=== PATIENT | female | born 1990 | race Caucasian/White ===

== ENCOUNTER → 2017-10-30 15:46 | Outpatient (CLI) | payer BC, SELFPAY ==
[2017-10-30 18:40] LABS: Chlamydia Trachomatis by PCR Negative (Negative); Neisserai gonorrhoeae by PCR Negative (Negative); Probe Check PASS; Sample Adequacy Control PASS; Specimen Processing Control PASS
== END ==
PROVIDERS: Visit Provider Obstetrics & Gynecology
DX: Z11.3 Encounter for screening for infections with a predominantly sexual mode of transmission (principal); Z32.01 Encounter for pregnancy test, result positive
CPT/HCPCS: 87491; 87591

== ENCOUNTER → 2017-11-17 14:15 | Outpatient (CLI) | payer BC, SELFPAY ==
[2017-11-17 15:00] LABS: Color, Urine Yellow (Yellow); Glucose, Dipstick Normal (Normal); Ketone-Dipstick 50 mg/dl (Negative); Leukocyte Esterase-Dipstick Negative /ul (Negative); Nitrite-Dipstick Negative (Negative); Occult Blood-Urine Negative /ul (Negative); Protein-Dipstick Negative (Negative); Urine Bilirubin Dipstick Negative (Negative); Urine Clarity Clear (Clear); Urine Urobilinogen Normal (Normal)
[2017-11-17 15:09] LABS: Absolute Lymphocyte Count 2.49 X10^3/ul (0.83-4.51); Absolute Neutrophil Count 6.1 X10^3/uL (2.0-7.7); Basophil# 0.04 X10^3/uL; Basophil% 0.4 % (0-1); Eosinophil# 0.05 X10^3/uL; Eosinophils% 0.6 % (0-5); Hematocrit 34.2 % (37-47); Hemoglobin 11.8 g/dl (12.0-15.0); Lymphocyte # 2.49 X10^3/ul (4.0); Lymphocyte % 27.4 % (19-41); Mean Corp Hgb Conc 34.5 g/gl (32-36); Mean Corpuscular Hgb 30.5 pg (27.0-32.0); Mean Corpuscular Volume 88.4 fL (81-99); Mean Platelet Vol. 8.8 fl (6.2-12.0); Monocyte# 0.45 X10^3/uL; Neutrophil # 6.05 X10^3/uL (2.7-7.7); Neutrophil % 66.5 % (47-70); Platelet Count 276 K/mm3 (150-450); RBC Distribution Width CV 12.5 % (11.6-14.6); RBC Distribution Width SD 40.1 fl (35.1-43.9); Red Blood Count 3.87 M/mm3 (4.2-5.4); White Blood Count 9.1 K/mm3 (4.4-11.0)
[2017-11-17 15:26] LABS: POSITIVE COUNT NO; POSITIVE DIFFERENTIAL NO; POSITIVE MORPHOLOGY NO
[2017-11-17 15:32] LABS: Thyroid Stim Hormone (TSH) 1.24 uIU/mL (0.358-3.74)
[2017-11-17 16:14] LABS: HIV - WCH Non-Reactive (Nonreactive); Rubella IgG > 500.0 IU/mL
[2017-11-17 16:36] LABS: COTININE Drug Screen Negative (<200 ng/mL)
[2017-11-17 17:38] LABS: Amphetamine Urine VISTA NEGATIVE (<1000 ng/mL); Barbiturate Urine VISTA NEGATIVE (< 200 ng/mL); Benzodiazepine Urine VISTA NEGATIVE (< 200 ng/mL); Cocaine Urine VISTA NEGATIVE (< 300 ng/mL); Ecstacy Urine VISTA NEGATIVE (< 500 ng/mL); Methadone Urine VISTA NEGATIVE (< 300 ng/mL); PCP Urine VISTA NEGATIVE (< 25 ng/mL); THC Urine VISTA NEGATIVE (< 50 ng/mL); Vista UDS pH Range 6
[2017-11-19 01:51] LABS: Prenatal RPR NONREACTIVE (NONREACTIVE)
[2017-11-19 11:13] LABS: HEPATITIS B SURFACE AG Negative (Negative); Hep C Antibodies <0.1 s/co ratio (0.0-0.9)
== END ==
PROVIDERS: Visit Provider Obstetrics & Gynecology
DX: Z34.81 Encounter for supervision of other normal pregnancy, first trimester (principal)
CPT/HCPCS: 36415; 80307; 81002; 84443; 85025; 86703; 86762; 86803; 87340

== ENCOUNTER → 2018-03-19 09:47 | Outpatient (CLI) | payer BC, SELFPAY ==
[2018-03-19 10:00] LABS: Glucose Challenge Gest 1H 50g 154 mg/dL (70-140)
[2018-03-19 10:11] LABS: Hematocrit 27.9 % (37-47); Hemoglobin 9.5 g/dl (12.0-15.0); Mean Corp Hgb Conc 34.1 g/gl (32-36); Mean Corpuscular Hgb 31.9 pg (27.0-32.0); Mean Corpuscular Volume 93.6 fL (81-99); Mean Platelet Vol. 9.6 fl (6.2-12.0); Platelet Count 229 K/mm3 (150-450); RBC Distribution Width CV 12.3 % (11.6-14.6); RBC Distribution Width SD 40.9 fl (35.1-43.9); Red Blood Count 2.98 M/mm3 (4.2-5.4); White Blood Count 9.1 K/mm3 (4.4-11.0)
[2018-03-19 10:12] LABS: Scan Indicated on CBC? Y/N NO
[2018-03-20 16:30] LABS: Ferritin 20 ng/mL (8-252); Iron Binding Capacity,Total 414 ug/dL (250-450)
== END ==
PROVIDERS: Visit Provider Obstetrics & Gynecology
DX: Z34.83 Encounter for supervision of other normal pregnancy, third trimester (principal)
CPT/HCPCS: 82728; 82950; 83550; 85027

== ENCOUNTER → 2018-03-23 06:54 | Outpatient (CLI) | payer BC, SELFPAY ==
[2018-03-23 07:20] LABS: Bedside Glucose 85 mg/dL (70-110)
[2018-03-23 08:12] LABS: Glucose GTT-Gestation. Fasting 83 mg/dL (<105)
[2018-03-23 09:42] LABS: Glucose GTT-Gestational 1 Hr 188 mg/dL (<190)
[2018-03-23 09:52] LABS: Glucose GTT-Gestational 2 Hr 100 mg/dL (<165)
[2018-03-23 10:03] LABS: Vitamin B12 304 pg/mL (211-911)
[2018-03-23 10:49] LABS: Glucose GTT-Gestational 3 Hr 56 L (<145)
== END ==
PROVIDERS: Visit Provider Obstetrics & Gynecology
DX: O99.810 Abnormal glucose complicating pregnancy (principal); O99.013 Anemia complicating pregnancy, third trimester; D64.9 Anemia, unspecified; Z3A.00 Weeks of gestation of pregnancy not specified
CPT/HCPCS: 36415; 82607; 82951; 82952; 82962

== ENCOUNTER → 2018-04-20 13:03 | Outpatient (CLI) | payer BC, SELFPAY ==
[2018-04-20 15:28] LABS: Hemoglobin 10.9 g/dl (12.0-15.0); Mean Corp Hgb Conc 34.1 g/gl (32-36); Mean Corpuscular Hgb 32.4 pg (27.0-32.0); Mean Corpuscular Volume 95.2 fL (81-99); Mean Platelet Vol. 9.6 fl (6.2-12.0); Platelet Count 241 K/mm3 (150-450); RBC Distribution Width CV 13.4 % (11.6-14.6); RBC Distribution Width SD 44.1 fl (35.1-43.9); Red Blood Count 3.36 M/mm3 (4.2-5.4); White Blood Count 10.6 K/mm3 (4.4-11.0)
[2018-04-20 15:35] LABS: Scan Indicated on CBC? Y/N NO
== END ==
PROVIDERS: Visit Provider Obstetrics & Gynecology
DX: O99.013 Anemia complicating pregnancy, third trimester (principal); D64.9 Anemia, unspecified; Z3A.00 Weeks of gestation of pregnancy not specified
CPT/HCPCS: 85027

== ENCOUNTER → 2018-05-01 14:05 | Outpatient (CLI) | payer BC, SELFPAY | PROVIDERS: Visit Provider Obstetrics & Gynecology | DX: N39.0 Urinary tract infection, site not specified (principal) | CPT/HCPCS: 87086; 87088 ==

== ENCOUNTER → 2018-05-18 11:08 | Outpatient (CLI) | payer BC, SELFPAY ==
[2018-05-18 12:43] LABS: Group B Strep DNA By PCR Negative (Negative); Internal Control PASS; Probe Check PASS; Specimen Processing Control PASS
== END ==
PROVIDERS: Visit Provider Obstetrics & Gynecology
DX: Z36.85 Encounter for antenatal screening for Streptococcus B (principal)
CPT/HCPCS: 87081; 87653

== ENCOUNTER 2018-06-04 03:40 | Inpatient (IN) | payer BC, SELFPAY ==
[2018-06-04 04:22] VITALS: BMI 31.7
[2018-06-04] MEDS: Lactated Ringers 1,000 ML 50 ML IV ×4 (04:30→22:00)
[2018-06-04 04:57] LABS: Hematocrit 34.2 % (37-47); Hemoglobin 11.9 g/dl (12.0-15.0); Mean Corp Hgb Conc 34.8 g/gl (32-36); Mean Corpuscular Hgb 32.5 pg (27.0-32.0); Mean Corpuscular Volume 93.4 fL (81-99); Mean Platelet Vol. 10.3 fl (6.2-12.0); Platelet Count 231 K/mm3 (150-450); RBC Distribution Width CV 13.1 % (11.6-14.6); Red Blood Count 3.66 M/mm3 (4.2-5.4); White Blood Count 12.5 K/mm3 (4.4-11.0)
[2018-06-04 04:59] LABS: Scan Indicated on CBC? Y/N NO
[2018-06-04 05:10] LABS: ROM Internal Control Test YES-OK TO RESULT pt. (Internal QC); ROM Patient Test POSITIVE (Negative)
[2018-06-04] MEDS: Oxytocin 30 units/NS 500 ml 30 UNITS/500 ML IV.SOLN IV (06:30)
--- NOTE | 2018-06-04 09:11 | PCM.PN.BLA ---
Progress Note LABOR PROGRESS NOTE Contractions are stronger, but tolerable. AVSS GEN - NAD, AAO x 3 FHR 130, moderate variability, + accelerations, no decelerations TOCO 2-3/10 min SVE deferred A/P: 27yo G1 @ 39wga with SROM, pitocin augmentation, Cat I FHR -Continue pitocin as tolerated by mother and fetus -Maternal and statuses reassuring
[2018-06-04] MEDS: fentaNYL-bupivacaine (epidural) 100 ML BAG EPIDURAL ×3 (13:30→22:30)
[2018-06-04] MEDS: Ondansetron 4 MG/2 ML Vial IV (16:10)
--- NOTE | 2018-06-04 21:43 | PCM.PN.BLA ---
Progress Note LABOR PROGRESS NOTE Marleni is tired. She's had a long day. She managed to nap intermittently. No other complaints. AVSS GEN - NAD, AAO x 3 FHR 120, moderate variability, + accelerations, no decelerations TOCO 3/10 min SVE deferred - 6cm/80/-1 by RN exam A/P: 27yo G1 @ 39wga in active labor, Cat I FHR on pitocin -Maternal and statuses reassuring -Continue pitocin as tolerated by mother and fetus
[2018-06-05] VITALS (18 sets, daily range): BP systolic 105–137; BP diastolic 63–74; PULSE 86–114; RESP 15–19; TEMP 36.8–37.7; O2SAT 96–99
[2018-06-05] MEDS: Lactated Ringers 1,000 ML 50 ML IV ×2 (02:00→07:51)
[2018-06-05] MEDS: fentaNYL-bupivacaine (epidural) 100 ML BAG EPIDURAL ×2 (02:30→07:14)
--- NOTE | 2018-06-05 07:47 | PCM.PN.BLA ---
Progress Note LABOR PROGRESS NOTE No complaints. AVSS GEN - NAD, AAO x 3 FHR 135, moderate variability, + accelerations, no decelerations TOCO 2-3/10 min SVE 9/90/0, tranverse - back on maternal left A/P: 27yo G1 @ 39 1/7wga in active labor, Cat I FHR -Will complete rotational maneuvers to promote descent. -If no change in 3 hours, will plan for section. -Maternal and statuses reassuring
[2018-06-05] MEDS: 0.9% Saline Lock 10 ML Syringe IV (10:27)
[2018-06-05] MEDS: Sodium Citrate/Citric Acid 30 ML UDC PO (11:50)
--- NOTE | 2018-06-05 11:54 | PCM.PN.BLA ---
Progress Note LABOR PROGRESS NOTE Marleni is comfortable with the epidural and without complaints. AVSS GEN - NAD, AAO x 3 FHR 135, moderate variability, + accelerations, no decelerations TOCO 3/10 min SVE 9/90/0 station A/P: 27yo G1 @ 39 1/7wga with arrest of dilation, Cat I FHR -Discussed exam with patient and , advised section for arrest d/o. Reviewed risks including pain, bleeding possibly hemorrhage requiring dilation and curettage, hysterectomy and/or blood transfusion; infection including incisional, uterine, sepsis or abscess; bowel injury; bladder injury; scarring affecting future surgery, nerve injury. Patient and given opportunity to ask questions and questions answered to their satisfaction and desires to proceed. -Anesthesiology notified -d/c xiang
[2018-06-05] MEDS: Oxytocin 30 units/NS 500 ml 30 UNITS/500 ML IV.SOLN 167 UNITS IV (12:22)
[2018-06-05] MEDS: Methylergonovine 0.2 MG/ML Ampul IM (12:24)
--- NOTE | 2018-06-05 13:06 | PCM.OB.CSR ---
- Problem List (1) 39 weeks gestation of Status: Acute (2) Arrest of dilation, delivered, current hospitalization Status: Acute Delivery Classification: CASSIE Final MICHEAL: 06/11/18 Final MICHEAL Source: US <20 weeks Gestational age: 39 Weeks and 1 Days Indications: Marleni is a 27-year-old 1 para 0 at 39 weeks gestational age with rupture of membranes. She underwent Pitocin augmentation and progressed to 9 cm dilatation without further advancement in labor over approximately 8 hours. She is advised to proceed with section. Risks, benefits, indications of procedure were reviewed. Patient agreed to proceed. Indications for : Sec. Arrest of Dilitation Description of Procedure: Vigorous male infant, Apgars 9 and 9 at 1 and 5 minutes of life respectively. Birthweight 3240g. Procedure: The patient was taken to the operating room and spinal analgesia was administered. She is placed in a dorsal supine position with left lateral tilt. The perineum and abdomen were prepped and draped in sterile fashion. And the spinal was found to be adequate. A Pfannenstiel incision was made using a scalpel and brought down to incise the subcutaneous tissue and rectus fascia at the midline. Subcutaneous tissue was bluntly dissected off the fascia laterally. The fascial incision was dissected laterally and cephalad using curved Higginbotham scissors. The superior leaflet of the rectus fascia was grasped using Nilsa clamps and bluntly dissected and sharply dissected from the underlying rectus muscle. In a similar fashion the inferior rectus fascia was dissected from the underlying muscle. The rectus muscles were bluntly at the midline. The peritoneum was identified and entered [sharply]. The bladder blade was placed into the abdomen and the vesicouterine peritoneal fold identified. The fold was incised and a bladder flap created. Bladder blade was then repositioned to the abdomen. A low transverse hysterotomy was made using the [Metzenbaum scissors] to level of the membranes. The hysterotomy was extended bluntly cephalad and caudad. The membranes were then ruptured revealing clear fluid. The head was elevated and brought to the level of the hysterotomy and the delivered revealing vigorous [male] . The cord was doubly clamped and cut after 30 seconds. The was passed to awaiting [nursery personnel]. The placenta was [expressed] from the uterus and appeared intact on inspection. The uterus was cleared of debris. The hysterotomy was then repaired using 0 Vicryl running lock suture. A second imbricating layer was also placed for additional hemostasis. The bladder blade was removed. The anterior cul-de-sac was cleared of debris. The peritoneum and rectus muscles were reapproximated using 2-0 Vicryl running suture. The rectus fascia was closed using 0 Stratafix. The subcutaneous tissue was reapproximated using 2-0 Vicryl. The skin was closed using 4-0 Monocryl subcuticularly. The line was placed. Steri-Strips and a Mepilex occlusive dressing was placed over the incision. The fundus was firm. The patient was then transferred to the recovery room without complication. Sponge, instrument, and needle counts were correct ?2. Amniotic Membrane Rupture Type: Spontaneous Amniotic Fluid Description: Clear Placenta Disposition: [facility] Drain: Perez to straight drain Fluids Replaced: 1000 ml Cord Entanglement: None Nuchal Cord Compression: Without compression Cord Vessel Description: 3 Vessels Esitmated Blood Loss (ml): 1000 Gender: Male (1 minute): 9 (5 minute): 9 Delayed cord clamping: Yes Pre-op Antibiotic Given: Ancef 2 grams IV x1 Pt instructed on risks of surgery: Bleeding, Anesthesia Risks, Infection, Need for Future C-Sections, Injury to surrounding structure(s) including bowel and bladder Complications: None - Admit VTE Documentation VTE Present on Admission: No VTE Mechan Device Prophylaxis: SCD's VTE Pharm Prophylaxis ordered?: No
--- NOTE | 2018-06-05 13:35 | NURSING ---
Alan Valladares RN taking over care for recovery. Pt. back to room at 1315. Vital signs stable. Infant placed [id number] and initiated.
[2018-06-05] MEDS: Lactated Ringers 1,000 ML 100 ML IV (14:40)
[2018-06-05] MEDS: Ketorolac 30 MG/ML Syringe IV (18:30)
[2018-06-05] MEDS: Cefazolin 1 GM/50 ML BAG IV (19:39)
[2018-06-06] VITALS (11 sets, daily range): BP systolic 105–122; BP diastolic 63–80; PULSE 70–98; RESP 16–18; TEMP 36.7–37.1; O2SAT 96–99
[2018-06-06] MEDS: Ketorolac 30 MG/ML Syringe IV ×5 (00:13→23:58)
[2018-06-06] MEDS: Lactated Ringers 1,000 ML 100 ML IV (01:08)
[2018-06-06] MEDS: Cefazolin 1 GM/50 ML BAG IV (04:04)
[2018-06-06 04:26] LABS: Hematocrit 24.9 % (37-47); Hemoglobin 8.4 g/dl (12.0-15.0); Mean Corp Hgb Conc 33.7 g/gl (32-36); Mean Corpuscular Hgb 32.2 pg (27.0-32.0); Mean Corpuscular Volume 95.4 fL (81-99); Mean Platelet Vol. 9.7 fl (6.2-12.0); Platelet Count 162 K/mm3 (150-450); RBC Distribution Width SD 43.3 fl (35.1-43.9); Red Blood Count 2.61 M/mm3 (4.2-5.4); White Blood Count 11.9 K/mm3 (4.4-11.0)
[2018-06-06 04:29] LABS: Scan Indicated on CBC? Y/N NO
--- NOTE | 2018-06-06 07:56 | PCM.PN.OB ---
Patient Problems: Active and Suspected Problems 39 weeks gestation of (Acute) Arrest of dilation, delivered, current hospitalization (Acute) Subjective: POD#1 Primary C/S Doing well. Nursing. Pain control adequate. C/O sinus problems and had been taking Claritin at home. Will continue this for now. - Physical Exam General: Alert, Oriented x3, Cooperative, No apparent distress HEENT: Atraumatic Neck: Supple Abdomen: Soft - Fundus firm NT at 1-2 cm inferior to umbilicus Skin: Incision - Mepilex with shadow drainage marked, no extension. Steristrips visible inferior portion. Neurological: Cranial nerves II-XII grossly intact Psych/Mental Status: Normal Affect Vital Signs Temp Pulse Resp BP Pulse Ox 98.5 F 97 18 105/68 96 06/06/18 04:15 06/06/18 06:15 06/06/18 06:15 06/06/18 04:15 06/06/18 06:15 Oxygen Delivery Method Room Air Weight: 78.8 kg Body Mass Index (BMI) 31.7 Intake and Output for Last 24 Hours 06/04/18 06/05/18 06/06/18 23:59 23:59 23:59 Intake Total 2757 / 2757 9040.7 / 9040.7 1522 / 1522 Output Total 1100 / 1100 1850 / 1850 750 / 750 Balance 1657 / 1657 7190.7 / 7190.7 772 / 772 Laboratory Tests Past 24 Hrs 06/06/18 04:15 WBC 11.9 H RBC 2.61 L Hgb 8.4 L Hct 24.9 L MCV 95.4 MCH 32.2 H MCHC 33.7 RDW 13.0 RDW Differential 43.3 Plt Count 162 MPV 9.7 Medical Necessity - Tobacco Use Smoking Status: Never smoker Assessment/Plan All Active Problems 39 weeks gestation of (Acute) Arrest of dilation, delivered, current hospitalization (Acute) POD#1 Primary C/S FTP beyond 9 cm Stable postop. Inc diet and activity as tolerated. Begin po meds. May shower. D/C corrales for voiding trial today Acute blood loss anemia. Typed and crossed for one unit, holding for now. clinically stable. Begin ferrous sulfate bid Repeat CBC Sinus symptoms. Had been on claritin daily. Continue claritin Continue care.
[2018-06-06] MEDS: Prenatal Vits Tablet 1 TABLET PO (09:25)
[2018-06-06] MEDS: Ferrous Sulfate 325 MG Tablet PO ×2 (09:25→17:58)
[2018-06-06] MEDS: oxyCODONE 5 MG Tablet PO (16:30)
[2018-06-06] MEDS: 0.9% Saline Lock 10 ML Syringe IV ×2 (17:58→23:58)
--- NOTE | 2018-06-06 21:30 | NURSING ---
Pt showered and asked this RN to check dressing following. Edge of dressing rolled up allowing water to fill 3/4 of dressing. Removed dressing and dried area. Placed new dressing on site. Clean dry and intact. Educated pt on incision care.
[2018-06-06] MEDS: Senna/Docusate Sodium 1 Tablet PO (21:31)
[2018-06-06] MEDS: Acetaminophen 325 MG Tablet PO (21:31)
[2018-06-07 02:50] VITALS: BP 112/67; PULSE 82; RESP 16; TEMP 36.8; O2SAT 97
[2018-06-07] MEDS: 0.9% Saline Lock 10 ML Syringe IV ×2 (05:36→13:13)
[2018-06-07] MEDS: Ketorolac 30 MG/ML Syringe IV ×2 (05:36→13:12)
[2018-06-07 06:44] LABS: Absolute Lymphocyte Count 1.88 X10^3/ul (0.83-4.51); Absolute Neutrophil Count 8.7 X10^3/uL (2.0-7.7); Basophil# 0.01 X10^3/uL; Basophil% 0.1 % (0-1); Eosinophil# 0.05 X10^3/uL; Eosinophils% 0.4 % (0-5); Hematocrit 24.6 % (37-47); Hemoglobin 8.3 g/dl (12.0-15.0); Lymphocyte # 1.88 X10^3/ul (4.0); Lymphocyte % 16.9 % (19-41); Mean Corp Hgb Conc 33.7 g/gl (32-36); Mean Corpuscular Hgb 31.7 pg (27.0-32.0); Mean Corpuscular Volume 93.9 fL (81-99); Monocyte# 0.52 X10^3/uL; Monocyte% 4.7 % (0-10); Neutrophil # 8.65 X10^3/uL (2.7-7.7); Neutrophil % 77.7 % (47-70); Platelet Count 163 K/mm3 (150-450); RBC Distribution Width CV 13.4 % (11.6-14.6); RBC Distribution Width SD 45.5 fl (35.1-43.9); Red Blood Count 2.62 M/mm3 (4.2-5.4); White Blood Count 11.1 K/mm3 (4.4-11.0)
[2018-06-07 06:49] LABS: Differential Indicated SCAN CRITERIA MET; POSITIVE COUNT NO; POSITIVE DIFFERENTIAL NO; POSITIVE MORPHOLOGY YES
[2018-06-07 08:08] LABS: Differential Comment SCANNED; Reactive Lymphocyte 1+
--- NOTE | 2018-06-07 08:35 | PCM.PN.OB ---
Patient Problems: Active and Suspected Problems 39 weeks gestation of (Acute) Arrest of dilation, delivered, current hospitalization (Acute) Subjective: Pain improved with Oxycodone. OOB and ambulating. Passing flatus. No bowel movement yet. Denies nausea, tolerates a regular diet. She is . Objective: AVSS - Physical Exam General: Alert, Oriented x3, Cooperative, No apparent distress HEENT: Atraumatic, Normocephalic Lungs: Clear to auscultation, Normal air movement Cardiovascular: Regular rate, Regular Rhythm, Normal S1, Normal S2 Abdomen: Soft, Non Tender, Non-Distended, Hypoactive Bowel Sounds, - - Fundus firm and nontender, lochia scant, incisional dressing c/d/i Extremities: No edema, No Calf Tenderness Neurological: Neuro grossly intact Psych/Mental Status: Normal Affect, Appropriate, Alert and oriented to time, place, person, mood and affect Vital Signs Temp Pulse Resp BP Pulse Ox 98.3 F 82 16 112/67 97 06/07/18 02:50 06/07/18 02:50 06/07/18 02:50 06/07/18 02:50 06/07/18 02:50 Oxygen Delivery Method Room Air Weight: 78.8 kg Body Mass Index (BMI) 31.7 Intake and Output for Last 24 Hours 06/05/18 06/06/18 06/07/18 23:59 23:59 23:59 Intake Total 9040.7 / 9040.7 2248 / 2248 Output Total 1850 / 1850 2550 / 2550 Balance 7190.7 / 7190.7 -302 / -302 Laboratory Tests Past 24 Hrs 06/07/18 05:45 WBC 11.1 H RBC 2.62 L Hgb 8.3 L Hct 24.6 L MCV 93.9 MCH 31.7 MCHC 33.7 RDW 13.4 RDW Differential 45.5 H Plt Count 163 MPV 9.0 Immature Gran % (Auto) 0.200 Neut % (Auto) 77.7 H Lymph % (Auto) 16.9 L Andrews % (Auto) 4.7 Eos % (Auto) 0.4 Baso % (Auto) 0.1 Absolute Neuts (auto) 8.7 H Absolute Lymphs (auto) 1.88 Total Counted Not Reportable Differential Comment SCANNED Reactive Lymphocytes 1+ Medical Necessity - Tobacco Use Smoking Status: Never smoker Assessment/Plan All Active Problems 39 weeks gestation of (Acute) Arrest of dilation, delivered, current hospitalization (Acute) 27yo POD#2 s/p PLTCS doing well. - RPr nr, HBsAg neg, HIV neg, HCV Ab neg, A positive, Rubella immune - -Post-op anemia - reviewed with patient, plan for iron supplementation at home -Routine post-op care
[2018-06-07 09:50] VITALS: BP 118/71; PULSE 72; RESP 18; TEMP 36.8; O2SAT 98
[2018-06-07] MEDS: Ferrous Sulfate 325 MG Tablet PO ×2 (09:58→19:12)
[2018-06-07] MEDS: Acetaminophen 325 MG Tablet PO ×2 (09:59→19:10)
[2018-06-07] MEDS: Senna/Docusate Sodium 1 Tablet PO (09:59)
[2018-06-07] MEDS: Prenatal Vits Tablet 1 TABLET PO (13:12)
[2018-06-07 13:18] VITALS: BP 118/65; PULSE 61; RESP 18; TEMP 37.1; O2SAT 98
[2018-06-07] MEDS: oxyCODONE 5 MG Tablet PO (19:11)
[2018-06-07 21:00] VITALS: BP 126/76; PULSE 72; RESP 16; TEMP 37.3; O2SAT 96
[2018-06-07] MEDS: Ibuprofen 600 MG Tablet PO (23:21)
[2018-06-08 02:50] VITALS: BP 113/68; PULSE 73; RESP 16; TEMP 36.5
[2018-06-08] MEDS: Acetaminophen 325 MG Tablet PO ×2 (04:52→10:41)
[2018-06-08] MEDS: oxyCODONE 5 MG Tablet PO (07:20)
--- NOTE | 2018-06-08 08:23 | PCM.PN.OB ---
Patient Problems: Active and Suspected Problems 39 weeks gestation of (Acute) Arrest of dilation, delivered, current hospitalization (Acute) Subjective: Pain is controlled, OOB. Had episode of lightheadedness and palpitations, but attributes this pain when sitting on the toilet. Symptoms now resolved and denies sx while ambulating. No complains. Denies heavy lochia. Objective: AVSS - Physical Exam General: Alert, Oriented x3, Cooperative, No apparent distress HEENT: Atraumatic, Normocephalic Lungs: Clear to auscultation, Normal air movement Cardiovascular: Regular rate, Regular Rhythm, Normal S1, Normal S2 Abdomen: Bowel Sounds Present, Soft, Non Tender, Non-Distended, - - Fundus firm and nontender Neurological: Neuro grossly intact Psych/Mental Status: Normal Affect, Appropriate, Alert and oriented to time, place, person, mood and affect Vital Signs Temp Pulse Resp BP Pulse Ox 97.7 F L 73 16 113/68 96 06/08/18 02:50 06/08/18 02:50 06/08/18 02:50 06/08/18 02:50 06/07/18 21:00 Oxygen Delivery Method Room Air Weight: 78.8 kg Body Mass Index (BMI) 31.7 Intake and Output for Last 24 Hours 06/06/18 06/07/18 06/08/18 23:59 23:59 23:59 Intake Total 2248 / 2248 Output Total 2550 / 2550 Balance -302 / -302 Laboratory Tests Past 24 Hrs 06/04/18 04:30 Crossmatch See Detail Medical Necessity - Tobacco Use Smoking Status: Never smoker Assessment/Plan All Active Problems 39 weeks gestation of (Acute) Arrest of dilation, delivered, current hospitalization (Acute) 27yo POD#3 s/p PLTCS doing well. - RPr nr, HBsAg neg, HIV neg, HCV Ab neg, A positive, Rubella immune - -Post-op anemia - reviewed with patient, plan for iron supplementation at home -Routine post-op care -d/c home
[2018-06-08 08:25] VITALS: BP 127/75; PULSE 74; RESP 18; TEMP 36.5; O2SAT 96
--- NOTE | 2018-06-08 08:32 | PCM.DCCSEC ---
Discharge Diet: No Restrictions Discharge Activity: Return to Normal Activity, May not drive while taking narcotic pain medications., May Shower, - - No tub bath, do not put anything in the vagina May resume sexual activity in: 6 weeks Lifting Restrictions: 10 lb Call your doctor if your incision/area has: Continuous Slow Oozing, Sudden Increased Bleeding, Increased Pain/ Swelling, Increased Redness, Foul Smelling Discharge Call your doctor if you observe: Fever of 101 or Higher, Inability to urinate, Inability to have a bowel movement, Using more than one pad per hour, Shortness of breath, Chest pain, Calf discomfort, Uncontrolled pain Suture Line Care: Avoid Pulling/Pushing Remove Dressing in (days):: - Monday Cleanse incision/area with: Soap & Water Additional Instructions: If you experience any of the following, contact your healthcare provider. Bleeding that soaks a pad every hour for 2 hours Fever 100.4 or higher Unrelieved incision or abdominal pain Swelling, redness, discharge or bleeding from your incision or episiotomy site Your incision begins to separate Problems urinating (including inability to urinate or burning while urinating). Visual changes Severe headache Flu-like symptoms Pain or redness in one of both of your breasts Pain, warmth, tenderness or swelling in your legs, especially the calf area Frequent nausea and vomiting Symptoms of depression or anxiety If you experience any of the following, call 911 or go to the nearest Emergency Room. Chest pain Problems breathing Seizure activity Partial or complete paralysis of a body part, slurred speech, weakness or drooping of the face, or a sudden inability to walk or hold your balance Allergies/Adverse Reactions: Allergies No Known Allergies Allergy (Verified 06/04/18 04:23) Medications to take at Discharge Ferrous Sulfate 325 mg PO TID 06/04/18 Vits [Prenatabs FA ] 1 tablet PO DAILY 06/04/18 Oxycodone [Oxyir] 1 tab PO Q4H PRN PRN 3 Days #18 tablet 06/08/18 Senna/Docusate Sodium [Senokot-S] 1 - 2 tab PO DAILY PRN #30 tab 06/08/18 The following prescriptions were given: Oxycodone [Oxyir] 1 tab PO Q4H PRN PRN 3 Days #18 tablet PRN Reason: Mod-Severe Pain (-07/11) Senna/Docusate Sodium [Senokot-S] 1 - 2 tab PO DAILY PRN #30 tab PRN Reason: Constipation Follow-Up: Call to make an appointment with your doctor for an incision check in 1-2 weeks. You will also need a 6 week post- follow up appointment. Test results from this visit will be discussed in further detail at your follow-up appointment, if applicable. Please Follow Up With: Melva Freeman MD When: 1-2 weeks Please Follow Up With: Melva Freeman MD When: 6 weeks Primary Care Physician: Care Physician,No Primary [Primary Care Provider] -
[2018-06-08] MEDS: Ferrous Sulfate 325 MG Tablet PO (10:31)
[2018-06-08] MEDS: Prenatal Vits Tablet 1 TABLET PO (10:31)
[2018-06-08] MEDS: Senna/Docusate Sodium 1 Tablet PO (10:41)
--- NOTE | 2018-06-12 09:58 | PCM.DC.SUM ---
Discharge Date and Diagnosis Date of Admission: 06/04/18 Date of Discharge: 06/08/18 Hospital Course and Treatment Operations: - - Low transverse section Summary of Care Provided: The patient is a 27 year old F admitted with SROM at 39 weeks gestation. She progressed to 9cm dilation and subsequently underwent a primary low transverse section for arrest of dilation. Her post-operative course was marked by anemia with Hgb 8.4, which remained stable. She was started on iron supplementation. Her post-operative course was otherwise unremarkable and she was discharged to home on post-operative day #3. Discharge Diet: No Restrictions Discharge Activity: Return to Normal Activity, May not drive while taking narcotic pain medications., May Shower, - - No tub bath, do not put anything in the vagina May resume sexual activity in: 6 weeks Call your doctor if your incision/area has: Continuous Slow Oozing, Sudden Increased Bleeding, Increased Pain/ Swelling, Increased Redness, Foul Smelling Discharge Call your doctor if you observe: Fever of 101 or Higher, Inability to urinate, Inability to have a bowel movement, Using more than one pad per hour, Shortness of breath, Chest pain, Calf discomfort, Uncontrolled pain Suture Line Care: Avoid Pulling/Pushing Remove Dressing in (days):: 3 - Monday Cleanse incision/area with: Soap & Water Home Medications: Medications to take at Discharge Ferrous Sulfate 325 mg PO TID 06/04/18 Vits [Prenatabs FA ] 1 tablet PO DAILY 06/04/18 Oxycodone [Oxyir] 1 tab PO Q4H PRN PRN 3 Days #18 tablet 06/08/18 Senna/Docusate Sodium [Senokot-S] 1 - 2 tab PO DAILY PRN #30 tab 06/08/18 Following Prescrptions Were Given to Patient: Oxycodone [Oxyir] 1 tab PO Q4H PRN PRN 3 Days #18 tablet PRN Reason: Mod-Severe Pain (4-10/10) Senna/Docusate Sodium [Senokot-S] 1 - 2 tab PO DAILY PRN #30 tab PRN Reason: Constipation Primary Care Physician: Care Physician,No Primary [Primary Care Provider] - Please Follow Up With: Melva Freeman MD When: 1-2 weeks Please Follow Up With: Melva Freeman MD When: 6 weeks Medical Necessity - Tobacco Use Smoking Status: Never smoker Meaningful Use Info Meaningful Use Diagnoses (Choose all that apply): None applicable
== END 2018-06-08 11:30 | disposition home or self-care (01) | DRG 765 ==
PROVIDERS: Admitting Provider Obstetrics & Gynecology; Visit Provider Obstetrics & Gynecology
DX: O62.1 Secondary uterine inertia (principal); D62 Acute posthemorrhagic anemia; O42.12 Full-term premature rupture of membranes, onset of labor more than 24 hours following rupture; O99.03 Anemia complicating the puerperium; O99.02 Anemia complicating childbirth; D50.9 Iron deficiency anemia, unspecified; O99.52 Diseases of the respiratory system complicating childbirth; J34.9 Unspecified disorder of nose and nasal sinuses; Z3A.39 39 weeks gestation of pregnancy; Z37.0 Single live birth
CPT/HCPCS: 59025; 59050; 84112; 85025; 85027; 86850; 86900; 86920; 99218; J7120; A4216; G0378; J2405

== ENCOUNTER → 2018-12-05 15:34 | Outpatient (CLI) | payer BC, SELFPAY | PROVIDERS: Referring Provider Otolaryngology Otolaryngology/Facial Plastic Surgery; Visit Provider Otolaryngology Otolaryngology/Facial Plastic Surgery | DX: J32.9 Chronic sinusitis, unspecified (principal); J02.9 Acute pharyngitis, unspecified | CPT/HCPCS: 87070; 87077; 87186; 87205 ==

== ENCOUNTER → 2019-06-25 16:25 | Outpatient (CLI) | payer BC, SELFPAY ==
[2019-06-30 13:34] LABS: HPV APTIMA, High Risk Negative (Negative)
== END ==
PROVIDERS: Visit Provider Obstetrics & Gynecology
DX: Z12.4 Encounter for screening for malignant neoplasm of cervix (principal)
CPT/HCPCS: 87624; 88175; G0145

== ENCOUNTER → 2020-02-04 14:00 | Outpatient (CLI) | payer BC, SELFPAY ==
[2020-02-04 15:17] LABS: Absolute Lymphocyte Count 2.84 X10^3/uL (0.83-4.51); Absolute Neutrophil Count 4.6 X10^3/uL (2.0-7.7); Basophil# 0.03 X10^3/uL; Basophil% 0.4 % (0-1); Eosinophil# 0.09 X10^3/uL; Eosinophils% 1.1 % (0-5); Hematocrit 36.6 % (37-47); Hemoglobin 12.3 g/dL (12.0-15.0); Lymphocyte # 2.84 X10^3/ul (4.0); Lymphocyte % 35.5 % (19-41); Mean Corp Hgb Conc 33.6 g/dL (32-36); Mean Corpuscular Hgb 30.3 pg (27.0-32.0); Mean Corpuscular Volume 90.1 fL (81-99); Mean Platelet Vol. 9.8 fl (6.2-12.0); Monocyte# 0.45 X10^3/uL; Monocyte% 5.6 % (0-10); NRBC Flagged by Analyzer 0 % (0-5); Neutrophil # 4.55 X10^3/uL (2.7-7.7); Platelet Count 275 K/mm3 (150-450); RBC Distribution Width CV 12.5 % (11.6-14.6); Red Blood Count 4.06 M/mm3 (4.2-5.4)
[2020-02-04 15:39] LABS: Color, Urine Amber (Yellow); Glucose, Dipstick Normal (Normal); Leukocyte Esterase-Dipstick 100 /ul (Negative); Nitrite-Dipstick Negative (Negative); Occult Blood-Urine Negative /ul (Negative); Protein-Dipstick 30 mg/dl (Negative); Specific Gravity, Urine 1.025 (1.002-1.030); Urine Bilirubin Dipstick Negative (Negative); Urine Clarity Turbid (Clear); Urine Urobilinogen Normal (Normal)
[2020-02-04 15:45] LABS: Amphetamine Urine VISTA NEGATIVE (<1000 ng/mL); Barbiturate Urine VISTA NEGATIVE (< 200 ng/mL); Benzodiazepine Urine VISTA NEGATIVE (< 200 ng/mL); Cocaine Urine VISTA NEGATIVE (< 300 ng/mL); Ecstacy Urine VISTA NEGATIVE (< 500 ng/mL); Methadone Urine VISTA NEGATIVE (< 300 ng/mL); PCP Urine VISTA NEGATIVE (< 25 ng/mL); THC Urine VISTA NEGATIVE (< 50 ng/mL); Vista UDS pH Range 5
[2020-02-04 15:53] LABS: Thyroid Stim Hormone (TSH) 0.94 uIU/mL (0.358-3.74)
[2020-02-04 16:09] LABS: Ketone-Dipstick 150 mg/dl (Negative)
[2020-02-04 18:10] LABS: Chlamydia Trachomatis by PCR Negative (Negative); Neisserai gonorrhoeae by PCR Negative (Negative); Probe Check PASS; Sample Adequacy Control PASS; Specimen Processing Control PASS
[2020-02-05 08:28] LABS: HIV - WCH Non-Reactive (Nonreactive); Hepatitis B Surface Antigen Non-Reactive (Nonreactive); Hepatitis C Antibody Non-Reactive (Nonreactive); Rubella IgG > 500.0 IU/mL
[2020-02-06 08:07] LABS: Prenatal RPR NONREACTIVE (NONREACTIVE)
== END ==
PROVIDERS: Referring Provider Obstetrics & Gynecology; Visit Provider Obstetrics & Gynecology
DX: Z34.81 Encounter for supervision of other normal pregnancy, first trimester (principal)
CPT/HCPCS: 80307; 81002; 84443; 85025; 86703; 86762; 86803; 87340; 87491; 87591

== ENCOUNTER → 2020-05-29 08:37 | Outpatient (CLI) | payer BC, SELFPAY ==
[2020-05-29 12:13] LABS: Hematocrit 30.8 % (37-47); Hemoglobin 10.2 g/dL (12.0-15.0); Mean Corp Hgb Conc 33.1 g/dL (32-36); Mean Corpuscular Hgb 31.4 pg (27.0-32.0); Mean Corpuscular Volume 94.8 fL (81-99); Mean Platelet Vol. 9.7 fl (6.2-12.0); Platelet Count 254 K/mm3 (150-450); RBC Distribution Width CV 12.7 % (11.6-14.6); RBC Distribution Width SD 43.5 fl (35.1-43.9); Red Blood Count 3.25 M/mm3 (4.2-5.4); White Blood Count 8.6 K/mm3 (4.4-11.0)
[2020-05-29 12:36] LABS: Glucose Challenge Gest 1H 50g 179 mg/dL (70-140)
[2020-06-02 14:12] LABS: Ferritin 22 ng/mL (8-252)
== END ==
PROVIDERS: Visit Provider Obstetrics & Gynecology
DX: Z34.83 Encounter for supervision of other normal pregnancy, third trimester (principal)
CPT/HCPCS: 36415; 82728; 82950; 85027

== ENCOUNTER → 2020-06-16 06:59 | Outpatient (CLI) | payer BC, SELFPAY ==
[2020-06-16 07:49] LABS: Glucose GTT-Gestation. Fasting 92 mg/dL (<105)
[2020-06-16 08:51] LABS: Glucose GTT-Gestational 1 Hr 210 mg/dL (<190)
[2020-06-16 10:37] LABS: Glucose GTT-Gestational 2 Hr 118 mg/dL (<165)
[2020-06-16 11:57] LABS: Glucose GTT-Gestational 3 Hr 144 L (<145)
== END ==
PROVIDERS: Referring Provider Obstetrics & Gynecology; Visit Provider Obstetrics & Gynecology
DX: O24.912 Unspecified diabetes mellitus in pregnancy, second trimester (principal); Z3A.00 Weeks of gestation of pregnancy not specified
CPT/HCPCS: 36415; 82951; 82952

== ENCOUNTER 2020-07-23 07:00 | Inpatient (IN) | payer BC, SELFPAY ==
[2020-07-23] VITALS (29 sets, daily range): BP systolic 87–113; BP diastolic 50–71; PULSE 63–106; RESP 16–18; TEMP 36–37.3; O2SAT 97–100; BMI 28.5
--- NOTE | 2020-07-23 06:56 | PCM.HP.OB ---
- Problem List (1) 36 weeks gestation of Status: Acute History Date of Admission: 07/23/20 Final MICHEAL: 08/18/20 Final MICHEAL Source: US <20 weeks Gestational age: 36 Weeks and 2 Days History of this : This is a 30 year-old, G [2], P [1], at 36 2/7 weeks gestational age with c/o leaking of clear fluid since 0430h this morning. Medical History: Medical History (Last Updated 07/23/20 @ 07:[address] Melva Concepcion MD) Anemia affecting O99.019 Surgical History: Surgical History (Last Updated 07/23/20 @ 06:[address] Melva Concepcion MD) Previous section Z98.891 Allergies No Known Allergies Allergy (Verified 06/04/18 04:23) Home Medications: Home Medications Ferrous Sulfate 325 mg PO TID 06/04/18 Vits [Prenatabs FA ] 1 tablet PO DAILY 06/04/18 Senna/Docusate Sodium [Senokot-S] 1 - 2 tab PO DAILY PRN #30 tab 06/08/18 Smoking Status: Never smoker Alcohol: None NST - FHR Rate Baby A Baseline: 125 Variability:: Moderate Accelerations:: None Decelerations:: None NST Reactive:: Yes FHR Category:: Category I Uterine Activity:: 1-2/10 min History Past Pregnancies: Past Pregnancies Delivery Date Name GA/ Weeks Outcome Route Wt Infant Sex Labor Length Anesthesia Delivery Location Provider FOB 06/2018 Will 39 SROM, arres of dilation at 9sm LTCS 7lb2oz M 35 Epidural [facility] Shawn Clements Expected Infant Delivery Method: Repeat Section Number of Visits: 7 Review of Systems Constitutional: Denies: Chills, Fever HEENT: Denies: Head Aches, Sore Throat, Visual Changes Cardiovascular: Denies: Chest Pain Respiratory: Denies: Cough, Shortness of Breath Gastrointestinal: Denies: Abdominal Pain, Nausea Physical Exam Vitals: Vital Signs Temp Pulse BP Pulse Ox 98.2 F 81 109/63 98 07/23/20 06:50 07/23/20 06:50 07/23/20 06:50 07/23/20 06:50 General: Alert, Oriented x3, Cooperative, No apparent distress HEENT: Atraumatic, Normocephalic Cardiovascular: Regular rate, Regular Rhythm, Normal S1, Normal S2 Lungs: Clear to auscultation, Normal air movement Abdomen: Soft, Non Tender, Non-Distended, Gravid Extremities:: No edema Neurological: Neuro grossly intact MASTER FISHER: Normal external genitalia Estimated gestational size: Appropriate for gestational size Presentation: Cephalic Cervix Dilation (cm): 1.5 Station: -3 Effacement (%): 50 Assessment/Plan All Active Problems (Last Updated 07/23/20 @ 07:[address] Melva Concepcion MD) 39 weeks gestation of (Acute) Arrest of dilation, delivered, current hospitalization (Acute) delivery delivered (Acute) 36 weeks gestation of (Acute) This is a 30 year-old, G [2], P [1], at 36 2/7 weeks gestational age with PPROM, Cat I FHR -Hx prior section. Reviewed section procedural r/b/i/a, declines trial of labor. -NPO -GBS unknown, PCN ordered -Proceed with repeat
[2020-07-23] MEDS: Lactated Ringers 1,000 ML 999 ML IV (07:27)
[2020-07-23 07:57] LABS: Absolute Lymphocyte Count 2.74 X10^3/uL (0.83-4.51); Absolute Neutrophil Count 7.7 X10^3/uL (2.0-7.7); Basophil# 0.04 X10^3/uL; Basophil% 0.3 % (0-1); Eosinophil# 0.21 X10^3/uL; Eosinophils% 1.8 % (0-5); Hematocrit 32.3 % (37-47); Lymphocyte # 2.74 X10^3/ul (4.0); Lymphocyte % 23.9 % (19-41); Mean Corp Hgb Conc 34.1 g/dL (32-36); Mean Corpuscular Hgb 31.8 pg (27.0-32.0); Mean Corpuscular Volume 93.4 fL (81-99); Mean Platelet Vol. 9.7 fl (6.2-12.0); Monocyte# 0.68 X10^3/uL; Monocyte% 5.9 % (0-10); NRBC Flagged by Analyzer 0 % (0-5); Neutrophil # 7.67 X10^3/uL (2.7-7.7); Platelet Count 252 K/mm3 (150-450); RBC Distribution Width CV 12.8 % (11.6-14.6); RBC Distribution Width SD 43.4 fl (35.1-43.9); Red Blood Count 3.46 M/mm3 (4.2-5.4); White Blood Count 11.5 K/mm3 (4.4-11.0)
[2020-07-23] MEDS: Acetaminophen 500 MG Tablet 1000 MG PO ×3 (08:09→20:24)
[2020-07-23] MEDS: Sodium Citrate/Citric Acid 30 ML UDC PO (08:09)
[2020-07-23] MEDS: Cefazolin 2 GM in 0.9% Normal Saline 100 ML IV (08:20)
--- NOTE | 2020-07-23 09:37 | OP.PCM_ITS ---
Delivery Final MICHEAL: 08/18/20 Final MICHEAL Source: US <20 weeks Gestational age: 36 Weeks and 2 Days data governance consultant: Bryon Pozo Type of Anesthesia:: Spinal Date of Procedure: 07/23/20 Pre-Operative Diagnosis: Spontaneous rupture membranes, history of section Post-Operative Diagnosis: Spontaneous rupture of membranes, history of section Description of Procedure: Surgeon: Jorge Trent EBL: 800 cc IV fluids: 1000 cc Complications: None Specimen: None Findings: Female vertex position Apgars 8 and 9. Normal uterus, tubes, and ovaries. Mild amount of adhesions. Consent: Patient with a history of section with spontaneous rupture membranes at 04 30 desires repeat section. Patient understands her risk procedure include but not limited to visceral or vascular injury, prolonged hospitalization, blood loss need for transfusion, reoperation. Patient had understanding wished proceed. All questions answered consent was signed. Procedure: Patient was brought back to the OR where spinal anesthesia found to be adequate. 2 g of Ancef, penicillin, and 500 mg of azithromycin were given for infection prophylaxis. She was prepared and draped in a dorsal supine position with leftward tilt. A Pfannenstiel incision was made skin with a scalpel. The incision was carried down the fascia with scalpel. Fascia was excised distended laterally. Inferior aspect of the fascia was grasped with a Nilsa clamp and the underlying rectus and mentalis muscle dissected off sharply with Higginbotham scissors. In a similar fashion superior aspect of the fascia was grasped with a Nilsa clamp and the underlying disc muscles dissected off sharply. Peritoneum was entered bluntly. Peritoneum was then extended superiorly and inferiorly with good visualization of bladder. Bladder blade inserted and vesicouterine peritoneum identified. Bladder flap was developed. A low transverse hysterotomy was made. Extended superior and inferiorly with upward lateral traction. Hand was placed into the hysterotomy and gentle fundal pressure was applied once the head was brought into the hysterotomy and bladder blade was removed. Head and shoulders were delivered with ease. Cord was cut and clamped. Baby was handed off to nursing. Uterus was exteriorized and closed in a continuous running fashion. Second layer was performed. Good hemostasis noted. Uterus placed back in the abdominal cavity and good hemostasis was noted. Muscle was closed. Fascia was closed continuous running fashion. Skin was closed in a subcuticular fashion. All counts were correct x2. Patient tolerated procedure well was brought to recovery stable condition.
[2020-07-23] MEDS: Oxytocin 30 units/NS 500 ml 30 UNITS/500 ML IV.SOLN 167 UNITS IV (09:45)
[2020-07-23 14:41] LABS: Group B Strep DNA By PCR Negative (Negative); Internal Control PASS; Probe Check PASS; Specimen Processing Control PASS
[2020-07-23] MEDS: Ketorolac 30 MG/ML Syringe IV ×2 (15:07→21:28)
[2020-07-23] MEDS: 0.9% Saline Lock 10 ML Syringe IV ×2 (15:08→21:28)
[2020-07-23] MEDS: Enoxaparin 40 MG/0.4 ML Syringe SC (20:25)
[2020-07-24 01:09] VITALS: BP 101/66; PULSE 73; RESP 14; TEMP 36.4
[2020-07-24] MEDS: Ketorolac 30 MG/ML Syringe IV ×2 (02:58→09:01)
[2020-07-24] MEDS: Acetaminophen 500 MG Tablet 1000 MG PO ×4 (02:59→20:26)
[2020-07-24] MEDS: 0.9% Saline Lock 10 ML Syringe IV ×2 (02:59→09:02)
[2020-07-24 03:03] VITALS: BP 103/65; PULSE 70; RESP 16; TEMP 36.1
[2020-07-24 03:23] LABS: Hematocrit 28.2 % (37-47); Hemoglobin 9.4 g/dL (12.0-15.0); Mean Corp Hgb Conc 33.3 g/dL (32-36); Mean Corpuscular Hgb 31.4 pg (27.0-32.0); Mean Corpuscular Volume 94.3 fL (81-99); Mean Platelet Vol. 9.2 fl (6.2-12.0); Platelet Count 209 K/mm3 (150-450); RBC Distribution Width CV 12.9 % (11.6-14.6); RBC Distribution Width SD 44.3 fl (35.1-43.9); Red Blood Count 2.99 M/mm3 (4.2-5.4); White Blood Count 12.1 K/mm3 (4.4-11.0)
[2020-07-24 07:40] VITALS: RESP 16; O2SAT 98
--- NOTE | 2020-07-24 08:41 | PCM.PN.OB ---
Patient Problems: Active and Suspected Problems (Last Updated 07/23/20 @ 07:[address] Melva Concepcion MD) 36 weeks gestation of (Acute) Subjective: No overnight complaints. Pain well controlled. Denies fevers chills - Physical Exam Vitals/I&O's: Vital Signs Temp Pulse Resp BP Pulse Ox 97 F L 70 16 103/65 98 07/24/20 03:03 07/24/20 03:03 07/24/20 07:40 07/24/20 03:03 07/24/20 07:40 Oxygen Delivery Method Room Air Weight: 156 lb Body Mass Index (BMI) 28.5 Intake and Output for Last 24 Hours 07/22/20 07/23/20 07/24/20 23:59 23:59 23:59 Intake Total 4069.05 / 4069.05 Output Total 1600 / 1600 1300 / 1300 Balance 2469.05 / 2469.05 -1300 / -1300 General: Alert, Oriented x3, Cooperative, No apparent distress HEENT: Atraumatic, PERRLA, Normocephalic Oral: Moist Mucosa Neck: Supple Abdomen: Bowel Sounds Present, Soft, Non Tender, Gravid - Fundus firm and below umbilicus, - - Incision clean dry and intact Extremities: No clubbing, No cyanosis, No edema Psych/Mental Status: Normal Affect, Appropriate, Alert and oriented to time, place, person, mood and affect Laboratory Results 07/23/20 07:27: Blood Type A POSITIVE, Antibody Screen NEGATIVE 07/23/20 07:40: Group B Strep DNA Negative, Specimen Comment Not Reportable 07/24/20 03:15: WBC 12.1 H, RBC 2.99 L, Hgb 9.4 L, Hct 28.2 L, MCV 94.3, MCH 31.4, MCHC 33.3, RDW Std Deviation 44.3 H, RDW Coeff of Bright 12.9, Plt Count 209, MPV 9.2 Current Medications Acetaminophen (Acetaminophen 500 Mg Tablet) 1,000 mg PO Q6H [facility]OM[facility] Last Admin: 07/24/20 02:59 Dose: 1,000 mg Documented by: Bisacodyl (Bisacodyl 10 Mg Suppository) 10 mg RECTAL UD PRN PRN Reason: If no BM Diphenhydramine HCl (Diphenhydramine 25 Mg Capsule) 25 mg PO Q6H PRN PRN PRN Reason: ITCHING Stop: 07/24/20 09:49 Enoxaparin Sodium (Enoxaparin 40 Mg/0.4 Ml Syringe) 40 mg SC DAILY@1999 [facility] Last Admin: 07/23/20 20:25 Dose: 40 mg Documented by: Hydrocortisone (Hydrocortisone 2.5% Crm) 1 applic TOPICAL TID PRN PRN; Protocol PRN Reason: Discomfort Lactated Ringer's () 1,000 mls @ 100 mls/hr IV .Q10H [facility] Last Admin: 07/23/20 21:54 Dose: Not Given Documented by: Ibuprofen (Ibuprofen 600 Mg Tablet) 600 mg PO Q6H [facility] Ketorolac Tromethamine (Ketorolac 30 Mg/Ml Syringe) 30 mg IV Q6H [facility] Stop: 07/24/20 09:01 Last Admin: 07/24/20 02:58 Dose: 30 mg Documented by: Methylergonovine Maleate (Methylergonovine 0.2 Mg/Ml Ampul) 0.2 mg IM X1 PRN PRN Reason: Uterine Atony Nalbuphine HCl (Nalbuphine 10 Mg/Ml Ampul) 5 mg IV Q3H PRN PRN PRN Reason: ITCHING Stop: 07/24/20 09:49 Naloxone HCl (Naloxone 0.4 Mg/Ml Syringe) 0.02 mg IV Q1M PRN PRN Reason: RR <10 and pt unresponsive Ondansetron HCl (Ondansetron 4 Mg/2 Ml Vial) 4 mg IV Q4H PRN PRN PRN Reason: Nausea Oxycodone HCl (Oxycodone 5 Mg Tablet) 5 mg PO Q4H PRN PRN PRN Reason: Pain Score 4-10 Prochlorperazine Edisylate (Prochlorperazine 10 Mg/2 Ml Vial) 10 mg IV Q6H PRN PRN PRN Reason: NAUSEA Senna/Docusate Sodium (Senna/Docusate Sodium 1 Tablet) 0 tablet PO DAILY [facility] Last Admin: 07/23/20 10:38 Dose: Not Given Documented by: Simethicone (Simethicone 80 Mg Tablet) 80 mg PO PCHS PRN PRN Reason: Indigestion/stomach pain Sodium Chloride (0.9% Saline Lock 10 Ml Syringe) 5 - 15 ml IV UD PRN PRN Reason: SALINE FLUSH Last Admin: 07/24/20 02:59 Dose: 10 ml Documented by: Medical Necessity - Tobacco Use Smoking Status: Never smoker Assessment/Plan All Active Problems (Last Updated 07/23/20 @ 07:[address] Melva Concepcion MD) 39 weeks gestation of (Acute) Arrest of dilation, delivered, current hospitalization (Acute) delivery delivered (Acute) 36 weeks gestation of (Acute) Postop day 1 status post repeat section at 36 weeks for spontaneous rupture membranes. Pain well controlled. Breast-feeding. Home tomorrow based on concrete carpenter's recommendations.
[2020-07-24] MEDS: Senna/Docusate Sodium 1 Tablet PO (09:01)
[2020-07-24 09:05] VITALS: BP 97/66; PULSE 77; RESP 16; TEMP 36.4
[2020-07-24 15:05] VITALS: BP 103/64; PULSE 78; RESP 16; TEMP 36.6
[2020-07-24] MEDS: Ibuprofen 600 MG Tablet PO ×2 (15:07→21:33)
[2020-07-24] MEDS: Enoxaparin 40 MG/0.4 ML Syringe SC (19:56)
[2020-07-24 20:04] VITALS: BP 108/71; PULSE 70; RESP 16; TEMP 36.9
[2020-07-25 02:00] VITALS: BP 102/65; PULSE 78; RESP 16; TEMP 36.8
[2020-07-25] MEDS: Acetaminophen 500 MG Tablet 1000 MG PO ×2 (03:04→09:20)
[2020-07-25] MEDS: Ibuprofen 600 MG Tablet PO (04:29)
--- NOTE | 2020-07-25 08:22 | PCM.PN.OB ---
Patient Problems: Active and Suspected Problems (Last Updated 07/23/20 @ 07:[address] Melva Concepcion MD) 36 weeks gestation of (Acute) Subjective: No overnight complaints. Pain well controlled. Minimal lochia. - Physical Exam Vitals/I&O's: Vital Signs Temp Pulse Resp BP Pulse Ox 98.2 F 78 16 102/65 98 07/25/20 02:00 07/25/20 02:00 07/25/20 02:00 07/25/20 02:00 07/24/20 07:40 Oxygen Delivery Method Room Air Weight: 156 lb Body Mass Index (BMI) 28.5 Intake and Output for Last 24 Hours 07/23/20 07/24/20 07/25/20 23:59 23:59 23:59 Intake Total 4069.05 / 4069.05 Output Total 1600 / 1600 1300 / 1300 Balance 2469.05 / 2469.05 -1300 / -1300 General: Alert, Oriented x3, Cooperative, No apparent distress HEENT: Atraumatic, Normocephalic Oral: Moist Mucosa Neck: Supple Abdomen: Bowel Sounds Present, Soft, Non Tender, Gravid - Fundus firm below umbilicus, - - Incision clean dry and intact Extremities: No clubbing, No cyanosis, No edema Psych/Mental Status: Normal Affect, Appropriate, Alert and oriented to time, place, person, mood and affect Current Medications Acetaminophen (Acetaminophen 500 Mg Tablet) 1,000 mg PO Q6H [facility] Last Admin: 07/25/20 03:04 Dose: 1,000 mg Documented by: Bisacodyl (Bisacodyl 10 Mg Suppository) 10 mg RECTAL UD PRN PRN Reason: If no BM Enoxaparin Sodium (Enoxaparin 40 Mg/0.4 Ml Syringe) 40 mg SC DAILY@1999 [facility] Last Admin: 07/24/20 19:56 Dose: 40 mg Documented by: Hydrocortisone (Hydrocortisone 2.5% Crm) 1 applic TOPICAL TID PRN PRN; Protocol PRN Reason: Discomfort Ibuprofen (Ibuprofen 600 Mg Tablet) 600 mg PO Q6H [facility] Last Admin: 07/25/20 04:29 Dose: 600 mg Documented by: Methylergonovine Maleate (Methylergonovine 0.2 Mg/Ml Ampul) 0.2 mg IM X1 PRN PRN Reason: Uterine Atony Naloxone HCl (Naloxone 0.4 Mg/Ml Syringe) 0.02 mg IV Q1M PRN PRN Reason: RR <10 and pt unresponsive Ondansetron HCl (Ondansetron 4 Mg/2 Ml Vial) 4 mg IV Q4H PRN PRN PRN Reason: Nausea Oxycodone HCl (Oxycodone 5 Mg Tablet) 5 mg PO Q4H PRN PRN PRN Reason: Pain Score 4-10 Prochlorperazine Edisylate (Prochlorperazine 10 Mg/2 Ml Vial) 10 mg IV Q6H PRN PRN PRN Reason: NAUSEA Senna/Docusate Sodium (Senna/Docusate Sodium 1 Tablet) 0 tablet PO DAILY [facility] Last Admin: 07/24/20 09:01 Dose: 1 tablet Documented by: Simethicone (Simethicone 80 Mg Tablet) 80 mg PO PCHS PRN PRN Reason: Indigestion/stomach pain Last Admin: 07/24/20 17:26 Dose: 80 mg Documented by: Sodium Chloride (0.9% Saline Lock 10 Ml Syringe) 5 - 15 ml IV UD PRN PRN Reason: SALINE FLUSH Last Admin: 07/24/20 09:02 Dose: 10 ml Documented by: Medical Necessity - Tobacco Use Smoking Status: Never smoker Assessment/Plan All Active Problems (Last Updated 07/23/20 @ 07:[address] Melva Concepcion MD) 39 weeks gestation of (Acute) Arrest of dilation, delivered, current hospitalization (Acute) delivery delivered (Acute) 36 weeks gestation of (Acute) Postoperative day 2 of section. Pain well controlled. Breast-feeding. Okay to [place] home if okay with residential counselor
--- NOTE | 2020-07-25 08:24 | DCINST_ITS ---
Discharge Diet: No Restrictions Discharge Activity: Return to Normal Activity, May not drive while taking narcotic pain medications., May Shower, - - No tub baths for 2 weeks May resume sexual activity in: 2 weeks Weight Bearing Status: Weight bearing as tolerated Call your doctor if your incision/area has: Foul Smelling Discharge Call your doctor if you observe: Fever of 101 or Higher, Shortness of breath, Chest pain Additional Instructions: If you experience any of the following, contact your healthcare provider. * Bleeding that soaks a pad every hour for 2 hours * Fever 100.4 or higher * Unrelieved incision or abdominal pain * Swelling, redness, discharge or bleeding from your incision or episiotomy site * Your incision begins to separate * Problems urinating (including inability to urinate or burning while urinating). * Visual changes * Severe headache * Flu-like symptoms * Pain or redness in one of both of your breasts * Pain, warmth, tenderness or swelling in your legs, especially the calf area * Frequent nausea and vomiting * Symptoms of depression or anxiety If you experience any of the following, call 911 or go to the nearest Emergency Room. * Chest pain * Problems breathing * Seizure activity * Partial or complete paralysis of a body part, slurred speech, weakness or drooping of the face, or a sudden inability to walk or hold your balance Allergies/Adverse Reactions: Allergies No Known Allergies Allergy (Verified 07/23/20 07:03) Medications to take at Discharge Ferrous Sulfate 325 mg PO TID 06/04/18 Vits [Prenatabs FA ] 1 tablet PO DAILY 06/04/18 Senna/Docusate Sodium [Senokot-S] 1 - 2 tab PO DAILY PRN #30 tab 06/08/18 Docusate Sodium [Colace] 100 mg PO BID #60 cap 07/25/20 Oxycodone [Oxyir] 5 mg PO Q6H PRN PRN 3 Days #12 tablet 07/25/20 The following prescriptions were given: Docusate Sodium [Colace] 100 mg PO BID #60 cap Transmission Status: Pending to [id number] Oxycodone [Oxyir] 5 mg PO Q6H PRN PRN 3 Days #12 tablet PRN Reason: Pain Score 6-10 Transmission Status: Received by [id number] Follow-Up: Call to make an appointment with your doctor for an incision check in 1-2 weeks. You will also need a 6 week post- follow up appointment. Test results from this visit will be discussed in further detail at your follow- up appointment, if applicable. Please Follow Up With: Melva Hills MD When: 2 weeks Primary Care Physician: Care Physician,No Primary [Primary Care Provider] - Proposed Discharge Date: 07/25/20
[2020-07-25 08:37] VITALS: BP 112/74; PULSE 68; RESP 16; TEMP 36.2
[2020-07-25] MEDS: Senna/Docusate Sodium 1 Tablet PO (09:20)
--- NOTE | 2020-07-25 22:07 | PCM.DC.SUM ---
Discharge Date and Diagnosis - Problem List Patient Problems: Active and Suspected Problems (Last Updated 07/23/20 @ 07:[address] Melva Concepcion MD) 36 weeks gestation of (Acute) Date of Admission: 07/23/20 Date of Discharge: 07/25/20 - Primary Discharge Diagnosis Acute Problems: Active Problems (Last Updated 07/23/20 @ 07:[address] Melva Concepcion MD) 36 weeks gestation of (Acute) Hospital Course and Treatment Imaging Results: None None Operations: - - Low transverse section Summary of Care Provided: The patient is a 30 year old F with 36-week spontaneous rupture membranes and history of section admitted to the hospital on 07/23/2020. Based on spontaneous rupture membranes and history of delivery proceeded with repeat low transverse section Via Pfannenstiel incision. Delivery and procedure without complication. Patient was standard postoperative recovery period and was discharged home on 07/25/2020. ] Patient Problems: Active and Suspected Problems (Last Updated 07/23/20 @ 07:[address] Melva Concepcion MD) 36 weeks gestation of (Acute) - Physical Exam Vitals/I&O's: Vital Signs Temp Pulse Resp BP Pulse Ox 97.2 F L 68 16 112/74 98 07/25/20 08:37 07/25/20 08:37 07/25/20 08:37 07/25/20 08:37 07/24/20 07:40 Oxygen Delivery Method Room Air Weight: 156 lb Body Mass Index (BMI) 28.5 Discharge Diet: No Restrictions Discharge Activity: Return to Normal Activity, May not drive while taking narcotic pain medications., May Shower, - - No tub baths for 2 weeks May resume sexual activity in: 2 weeks Weight Bearing Status: Weight bearing as tolerated Call your doctor if your incision/area has: Foul Smelling Discharge Call your doctor if you observe: Fever of 101 or Higher, Shortness of breath, Chest pain Home Medications: Medications to take at Discharge Ferrous Sulfate 325 mg PO TID 06/04/18 Vits [Prenatabs FA ] 1 tablet PO DAILY 06/04/18 Senna/Docusate Sodium [Senokot-S] 1 - 2 tab PO DAILY PRN #30 tab 06/08/18 Docusate Sodium [Colace] 100 mg PO BID #60 cap 10/24/20 Following Prescriptions Were Given to Patient: Docusate Sodium [Colace] 100 mg PO BID #60 cap Transmission Status: [id number] Primary Care Physician: Care Physician,No Primary [Primary Care Provider] - Please follow up with your Primary Care Physician in: 1-2 weeks for incision check and 6 week follow up Please Follow Up With: Melva Hills MD When: 2 weeks Medical Necessity - Tobacco Use Smoking Status: Never smoker Meaningful Use Info Meaningful Use Diagnoses (Choose all that apply): None applicable
== END 2020-07-25 09:50 | disposition home or self-care (01) | DRG 788 ==
LOC: WPOUT 07:04 → WP 07:04
PROVIDERS: Admitting Provider Obstetrics & Gynecology; Referring Provider Obstetrics & Gynecology; Visit Provider Obstetrics & Gynecology
DX: O34.219 Maternal care for unspecified type scar from previous cesarean delivery (principal); Z37.0 Single live birth; D64.9 Anemia, unspecified; O99.019 Anemia complicating pregnancy, unspecified trimester; Z3A.36 36 weeks gestation of pregnancy
CPT/HCPCS: 59050; 85025; 85027; 86850; 86900; 86901; 87081; 87653; 99218; 99251; J7120; A4216; G0378; G0463; J2405

== ENCOUNTER → 2021-07-23 10:11 | Outpatient (CLI) | payer BC, SELFPAY ==
[2021-07-23 11:17] LABS: Color, Urine Yellow (Yellow); Glucose, Dipstick Normal (Normal); Ketone-Dipstick Negative (Negative); Leukocyte Esterase-Dipstick Negative /ul (Negative); Nitrite-Dipstick Negative (Negative); Occult Blood-Urine Negative /ul (Negative); Protein-Dipstick Negative (Negative); Urine Bilirubin Dipstick Negative (Negative); Urine Clarity Clear (Clear); Urine Urobilinogen Normal (Normal); Urine pH 6.5 (5.0 - 8.0)
[2021-07-23 11:23] LABS: Absolute Lymphocyte Count 2.23 X10^3/uL (0.83-4.51); Absolute Neutrophil Count 5.1 X10^3/uL (2.0-7.7); Basophil# 0.02 X10^3/uL; Basophil% 0.3 % (0-1); Eosinophil# 0.17 X10^3/uL; Eosinophils% 2.1 % (0-5); Hematocrit 37.1 % (37-47); Hemoglobin 12.4 g/dL (12.0-15.0); Lymphocyte # 2.23 X10^3/ul (0.83-4.51); Lymphocyte % 27.9 % (19-41); Mean Corp Hgb Conc 33.4 g/dL (32-36); Mean Corpuscular Volume 89.6 fL (81-99); Mean Platelet Vol. 9.8 fl (6.2-12.0); Monocyte# 0.44 X10^3/uL; Monocyte% 5.5 % (0-10); NRBC Flagged by Analyzer 0 % (0-5); Neutrophil % 63.8 % (47-70); Platelet Count 293 K/mm3 (150-450); RBC Distribution Width CV 12.2 % (11.6-14.6); RBC Distribution Width SD 39.8 fl (35.1-43.9); Red Blood Count 4.14 M/mm3 (4.2-5.4)
[2021-07-23 11:35] LABS: Thyroid Stim Hormone (TSH) 1.23 uIU/mL (0.358-3.74)
[2021-07-23 11:40] LABS: Amphetamine Urine VISTA NEGATIVE (<1000 ng/mL); Barbiturate Urine VISTA NEGATIVE (< 200 ng/mL); Benzodiazepine Urine VISTA NEGATIVE (< 200 ng/mL); Cocaine Urine VISTA NEGATIVE (< 300 ng/mL); Ecstacy Urine VISTA NEGATIVE (< 500 ng/mL); Methadone Urine VISTA NEGATIVE (< 300 ng/mL); PCP Urine VISTA NEGATIVE (< 25 ng/mL); THC Urine VISTA NEGATIVE (< 50 ng/mL); Vista UDS pH Range 6
[2021-07-23 12:23] LABS: HIV - WCH Non-Reactive (Nonreactive); Hepatitis B Surface Antigen Non-Reactive (Nonreactive); Hepatitis C Antibody Non-Reactive (Nonreactive); Rubella IgG Reactive (Nonreactive); Syphilis Antibodies Non-reactive
[2021-07-26 01:06] LABS: Chlamydia By Nucleic Acid AMP Negative (Negative)
[2021-07-26 08:29] LABS: Gonococcus By Nucleic Acid AMP Negative (Negative)
== END ==
PROVIDERS: Visit Provider Obstetrics & Gynecology
DX: Z34.81 Encounter for supervision of other normal pregnancy, first trimester (principal)
CPT/HCPCS: 36415; 80307; 81002; 84443; 85025; 86703; 86762; 86780; 86803; 87086; 87088; 87340; 87491; 87591

== ENCOUNTER 2021-11-12 15:09 | Outpatient (CLI) | payer BC, SELFPAY ==
[2021-11-12 15:48] LABS: Hemoglobin 10.6 g/dL (12.0-15.0); Mean Corp Hgb Conc 35.3 g/dL (32-36); Mean Corpuscular Hgb 32.2 pg (27.0-32.0); Mean Corpuscular Volume 91.2 fL (81-99); Mean Platelet Vol. 9.3 fl (6.2-12.0); Platelet Count 256 K/mm3 (150-450); RBC Distribution Width CV 12.9 % (11.6-14.6); RBC Distribution Width SD 41.6 fl (35.1-43.9); Red Blood Count 3.29 M/mm3 (4.2-5.4); White Blood Count 9.3 K/mm3 (4.4-11.0)
[2021-11-12 15:54] LABS: Glucose Challenge Gest 1H 50g 173 mg/dL (70-140)
== END 2021-11-12 23:59 | disposition home or self-care (01) ==
LOC: WOBLAB 15:10
PROVIDERS: Visit Provider Obstetrics & Gynecology
DX: Z34.83 Encounter for supervision of other normal pregnancy, third trimester (principal)
CPT/HCPCS: 36415; 82950; 85027

== ENCOUNTER 2022-01-04 12:42 | Outpatient (CLI) | payer BC, SELFPAY ==
[2022-01-04 16:44] LABS: Hematocrit 27.8 % (37-47); Hemoglobin 9.1 g/dL (12.0-15.0); Mean Corp Hgb Conc 32.7 g/dL (32-36); Mean Corpuscular Hgb 29.4 pg (27.0-32.0); Mean Platelet Vol. 9.3 fl (6.2-12.0); Platelet Count 261 K/mm3 (150-450); RBC Distribution Width CV 12.3 % (11.6-14.6); RBC Distribution Width SD 39.9 fl (35.1-43.9); Red Blood Count 3.09 M/mm3 (4.2-5.4); White Blood Count 8.1 K/mm3 (4.4-11.0)
[2022-01-04 16:47] LABS: ALB/GLOB Ratio 0.6 RATIO (0.9-2.4); AST(SGOT) 16 U/L (15-37); Alanine Aminotransfer ALT/SGPT 17 U/L (13-56); Albumin, Serum 2.6 g/dL (3.2-5.0); Alkaline Phosphatase 92 U/L (45-117); Anion Gap 4 (5-15); BUN 8 mg/dL (7-18); BUN/Creat Ratio 12.8 RATIO (10-20); Calcium,Total 7.9 mg/dL (8.5-10.1); Chloride 107 mmol/L (98-107); Creatinine, Serum 0.63 mg/dL (0.55-1.02); EST Glomerular Filtration Rate 116 mL/min (>60); Est Glom Filt Rate - Afr Amer 141 mL/min (>60); Globulin 4.1 g/dL (2.2-4.2); Glucose 79 mg/dL (74-106); LDH 163 U/L (84-246); Potassium 3.6 mmol/L (3.5-5.1); Protein, Total 6.7 g/dL (6.4-8.2); Sodium Level 138 mmol/L (136-145)
[2022-01-04 17:22] LABS: Protein, Urine (Random) < 6.0 mg/dL (<11.9); Protein:Creat Ratio 416 mg/g CRE (0-200)
== END 2022-01-04 23:59 | disposition home or self-care (01) ==
PROVIDERS: Visit Provider Obstetrics & Gynecology
DX: O14.90 Unspecified pre-eclampsia, unspecified trimester (principal); Z3A.00 Weeks of gestation of pregnancy not specified
CPT/HCPCS: 36415; 80053; 82570; 83615; 84156; 85027

== ENCOUNTER 2022-01-08 08:38 | Outpatient (CLI) | payer BC, SELFPAY ==
[2022-01-08 11:05] LABS: 24 Hour Urine Protein 312.4 mg/24HR (<150 MG/24HR); 24HR. UA Prot. Total Volume 2625 mL; 24HR. Urine Creatinine 1.11 g/24 HR (0.70-1.90); Urine Protein (24 Hour) 11.9 mg/dL (<11.9)
== END 2022-01-08 23:59 | disposition home or self-care (01) ==
LOC: LABSPEC 08:39
PROVIDERS: Visit Provider Obstetrics & Gynecology
DX: O14.93 Unspecified pre-eclampsia, third trimester (principal)
CPT/HCPCS: 81050; 82570; 84156

== ENCOUNTER → 2022-01-21 | Outpatient (CLI) | payer BC, SELFPAY | END | disposition home or self-care (01) | LOC: LABSPEC 11:32 | PROVIDERS: Visit Provider Obstetrics & Gynecology | DX: Z36.85 Encounter for antenatal screening for Streptococcus B (principal) | CPT/HCPCS: 87081 ==

== ENCOUNTER 2022-02-08 05:16 | Inpatient (IN) | payer BC, SELFPAY ==
[2022-02-08] VITALS (19 sets, daily range): BP systolic 90–132; BP diastolic 54–89; PULSE 59–95; RESP 14–18; TEMP 35.8–36.8; O2SAT 96–100; BMI 29.5
[2022-02-08] MEDS: Lactated Ringers 1,000 ML 999 ML IV (05:39)
[2022-02-08 05:54] LABS: Absolute Lymphocyte Count 2.74 X10^3/uL (0.83-4.51); Absolute Neutrophil Count 5.1 X10^3/uL (2.0-7.7); Basophil# 0.03 X10^3/uL; Basophil% 0.3 % (0-1); Eosinophil# 0.25 X10^3/uL; Eosinophils% 2.9 % (0-5); Hematocrit 28.6 % (37-47); Hemoglobin 9.2 g/dL (12.0-15.0); Lymphocyte # 2.74 X10^3/ul (0.83-4.51); Lymphocyte % 31.7 % (19-41); Mean Corp Hgb Conc 32.2 g/dL (32-36); Mean Corpuscular Hgb 27.5 pg (27.0-32.0); Mean Corpuscular Volume 85.6 fL (81-99); Mean Platelet Vol. 9.9 fl (6.2-12.0); Monocyte# 0.46 X10^3/uL; Monocyte% 5.3 % (0-10); NRBC Flagged by Analyzer 0 % (0-5); Neutrophil # 5.09 X10^3/uL (2.7-7.7); Neutrophil % 59.1 % (47-70); Platelet Count 222 K/mm3 (150-450); RBC Distribution Width CV 12.5 % (11.6-14.6); RBC Distribution Width SD 39.4 fl (35.1-43.9); Red Blood Count 3.34 M/mm3 (4.2-5.4); White Blood Count 8.6 K/mm3 (4.4-11.0)
[2022-02-08] MEDS: Acetaminophen 500 MG Tablet 1000 MG PO ×3 (06:03→18:47)
[2022-02-08] MEDS: Lactated Ringers 1,000 ML 150 ML IV (06:38)
--- NOTE | 2022-02-08 07:19 | PCM.HP.OB ---
HPI - General General Date of Admission: 02/08/22 HPI Narrative NAEL TAMAYO, is a 31 F who presents for scheduled repeat section. Problems: hx asthma- mild intermittent Prior 36w delivery - PPROM Prior section x 2 Gestational proteinuria Maternal Data Information MICHEAL Calculator Estimated Delivery Date Method Current WG Current Estimate 02/13/22 Ultrasound #1 39w 2d Other Estimates 02/06/22 LMP (Certain) 40w 2d PFSH PFSH Medical History Anemia affecting Asthma History of pre-term labor Home Medications Prenatabs FA 1 tab PO DAILY 06/04/18 [History Last Taken 02/08/22 1200] ferrous sulfate 325 mg PO TID 06/04/18 [History Last Taken 02/01/22] docusate sodium 100 mg PO BID 02/08/22 [History Last Taken 02/07/22] Allergy/AdvReac Type Severity Reaction Status Date / Time No Known Allergies Allergy Verified 07/23/20 07:03 Surgical History History of tonsillectomy and adenoidectomy Previous section Social History Smoking Status: Never smoker History 3 Elective abortions Hx Para 2 Spontaneous abortions Hx # Term Pregnancies 1 Ectopic pregnancies Hx # Pregnancies 1 Multiple births # of living children 2 NST FHR Rate Baby A Baseline: 135 Variability:: Moderate Accelerations:: 15 x 15 Decelerations:: None NST Reactive:: Yes FHR Category:: Category I Uterine Activity:: 0/10 Vital Signs Vital Signs Vital Signs: 02/08/22 06:01 Temperature 97.4 F L Temperature Source Temporal Pulse Rate 95 Respiratory Rate 16 Blood Pressure 99/62 Blood Pressure Mean 74 Blood Pressure Source Monitor Blood Pressure Position Semi-Fowlers Blood Pressure Location Right Arm Pulse Ox 98 Oxygen Delivery Method Room Air Weight Weight: 73.391 kg Body Mass Index (BMI) 29.5 Physical Exam Const alert, oriented x3 and no apparent distress HEENT normocephalic Resp normal respiratory effort, normal air movement and clear to auscultation bilaterally Cardio regular rate and regular rhythm GI normal to inspection, nondistended, normoactive bowel sounds, soft to palpation, non-tender and non-distended Inspection: gravid Extremity no calf tenderness and no pedal edema Labs Labs Labs: Blood Type A POSITIVE Antibody Screen NEGATIVE Hct 28.6 % (37-47) L Hgb 9.2 g/dL (12.0-15.0) L Syphilis Total Ab Non-reactive Rubella IgG Antibody Reactive (Nonreactive) Hep Bs Antigen Non-Reactive (Nonreactive) Chlamydia DNA (JUVENAL) Negative (Negative) Neisseria gonorrhoeae DNA (JUVENAL) Negative (Negative) HIV 1&2 Antibody Non-Reactive (Nonreactive) Glucose 1 Hr 50 gm 173 mg/dL (70-140) H Group B Strep DNA Negative (Negative) Rhogam given: No Assessment & Plan (1) 39 weeks gestation of : PLAN: Proceed as planned with repeat section
[2022-02-08] MEDS: Sodium Citrate/Citric Acid 30 ML UDC PO (07:20)
[2022-02-08] MEDS: Cefazolin 2 GM in 0.9% Normal Saline 100 ML IV (07:51)
--- NOTE | 2022-02-08 08:43 | OP.PCM_ITS ---
Assessment & Plan (1) 39 weeks gestation of : (2) delivery delivered: Maternal Data Information MICHEAL Calculator Estimated Delivery Date Method Current WG Current Estimate 02/13/22 Ultrasound #1 39w 2d Other Estimates 02/06/22 LMP (Certain) 40w 2d Details Operative Information Date of Procedure: 02/08/22 Pre-Operative Diagnosis: 1. 39 2/7 weeks gestastion 2. Prior section x 2 Post-Operative Diagnosis: 1. 39 2/7 weeks gestastion 2. Prior section x 2 3. Intercede placement Indications for : Repeat Elective Indications Narrative: 31-year-old 3 para 2-0-0-2 presents at 39-2/7 weeks gestational age for scheduled repeat section. She had a history of 2 prior sections. She was counseled regarding procedural risks, benefits, indications and alternatives and desired to proceed. Classification: Scheduled Procedure Type: low transverse deckhand #1: Lyubov Cerda Type of Anesthesia: Spinal Anesthesiologist: Tom Du Antibiotic Given: Ancef 2 grams IV x1 Drain: Perez to straight drain Estimated Blood Loss: 800 ml Fluids Replaced: 1500 ml Findings Description of Procedure: The patient was taken to the operating room and spinal analgesia was administered. She is placed in a dorsal supine position with left lateral tilt. The perineum and abdomen were prepped and draped in sterile fashion. And the spinal was found to be adequate. A Pfannenstiel incision was made using a scalpel and brought down to incise the subcutaneous tissue and rectus fascia at the midline. Subcutaneous tissue was bluntly dissected off the fascia laterally. The fascial incision was dissected laterally and cephalad using curved Higginbotham scissors. The superior leaflet of the rectus fascia was g rasped using Nilsa clamps and bluntly dissected and sharply dissected from the underlying rectus muscle. In a similar fashion the inferior rectus fascia was dissected from the underlying muscle. The rectus muscles were bluntly at the midline. The peritoneum was identified and entered [sharply]. The bladder blade was placed into the abdomen and the vesicouterine peritoneal fold identified with an adjacent adhesion incorporating the right anterior abdominal wall and the anterior right uterus. Sharp and blunt dissection was performed to separate the anterior abdominal wall from the uterus and further delineate the vesicouterine peritoneal fold. The fold was incised and a bladder flap created. Bladder blade was then repositioned to the abdomen. A low transverse hysterotomy was made using the [Metzenbaum scissors] to level of the membranes. The hysterotomy was extended bluntly cephalad and caudad. The membranes were then ruptured revealing clear fluid. The head was elevated and brought to the level of the hysterotomy. The Kiwi was placed at the flexion point and 500 mmHg suction applied to assist with delivery with rapid delivery of the head. A vigorous female was born. mouth and nares were bulb suctioned and the cord was doubly clamped and cut after 60 seconds. The infant was passed to awaiting [nursery personnel]. The placenta was [expressed] from the uterus and appeared intact on inspection. The uterus was cleared of debris. The hysterotomy was then repaired using 0 Vicryl running lock suture. Small capillary bleeding from the uterine serosa was controlled with the Bovie with good hemostasis. Interceed was placed atop the hysterotomy repair. An adhesion of the omentum to the right peritoneum and right rectus fascia creating a circular defect was doubly clamped, cut and suture ligated at both ends to avoid risk for bowel obstruction. The bladder blade was removed. The anterior cul-de-sac was cleared of debris. The peritoneum and rectus muscles were reapproximated using 2-0 Vicryl running suture. The rectus fascia was closed using 0 Stratafix running suture. The subcutaneous tissue was reapproximated using 2-0 Vicryl. The skin was closed using 4-0 Monocryl subcuticularly by the SUPERVISOR BREW [employer]SE under my supervision. A Mepilex occlusive dressing was placed over the incision. The fundus was firm. The patient was then transferred to the recovery room without complication. Sponge, instrument, and needle counts were correct ?2. Infant weight 3405g Presentation: Positive for Vertex Amniotic Fluid Description: Clear Placenta Disposition: [facility] Cord Vessel Description: 3 Vessels Cord Entanglement: None Infant A Gender: Female (1 minute): 8 (5 minute): 9 Delayed Cord Clamping: Yes Complications Risks of Surgery Discussed w/Patient: Bleeding, Anesthesia Risks, Infection and Injury to surrounding structure(s) including bowel and bladder
[2022-02-08] MEDS: Oxytocin 30 units/NS 500 ml 30 UNITS/500 ML IV.SOLN 167 UNITS IV (09:05)
[2022-02-08] MEDS: Ketorolac 30 MG/ML Syringe IV ×3 (09:21→23:04)
[2022-02-08] MEDS: Lactated Ringers 1,000 ML 100 ML IV (12:10)
[2022-02-08] MEDS: Senna/Docusate Sodium 1 Tablet PO (12:14)
[2022-02-08] MEDS: Prenatal Vits Tablet 1 TABLET PO (12:14)
[2022-02-08] MEDS: Ondansetron 4 MG/2 ML Vial IV ×3 (13:13→21:54)
[2022-02-08] MEDS: Cefazolin 1 GM/50 ML BAG IV (16:16)
[2022-02-08] MEDS: proCHLORPERazine 10 MG/2 ML Vial IV (16:28)
[2022-02-08] MEDS: 0.9% Saline Lock 10 ML Syringe IV ×3 (16:29→23:09)
[2022-02-08] MEDS: Lactated Ringers 500 ML 999 ML IV (16:45)
[2022-02-08 18:06] LABS: Hematocrit 26.7 % (37-47); Hemoglobin 8.6 g/dL (12.0-15.0); Mean Corp Hgb Conc 32.2 g/dL (32-36); Mean Corpuscular Hgb 27.7 pg (27.0-32.0); Mean Corpuscular Volume 86.1 fL (81-99); Mean Platelet Vol. 9.8 fl (6.2-12.0); Platelet Count 173 K/mm3 (150-450); RBC Distribution Width CV 12.6 % (11.6-14.6); RBC Distribution Width SD 39.6 fl (35.1-43.9); White Blood Count 8.6 K/mm3 (4.4-11.0)
--- NOTE | 2022-02-08 20:37 | NURSING ---
Orthostatic BPs: Laying- 101/60, HR 68 Sitting- 96/55, HR 71 Standing-96/54, HR 98
--- NOTE | 2022-02-08 20:40 | NURSING ---
2039- Pt. stood at bedside for orthostatic BP assessments. States that she is feeling much better. Has not vomited since fast food shift lead started at 1900. 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 Pt. reports she was able to keep her dinner down and has been taking small sips of water. Vital signs all WNL, lochia small. No clots noted. Will continue to monitor closely.
[2022-02-09] MEDS: Cefazolin 1 GM/50 ML BAG IV (00:24)
[2022-02-09 00:35] VITALS: BP 98/46; PULSE 72
[2022-02-09] MEDS: Acetaminophen 500 MG Tablet 1000 MG PO ×3 (00:35→12:48)
--- NOTE | 2022-02-09 02:11 | NURSING ---
Late entry for 2340- Pt. had catheter in for extended time due to excessive emesis during the day that caused dehydration and minimal output. After LR bolus and adequate PO that pt. did not vomit up, urine output improved and physician gave verbal order to d/c corrales.
[2022-02-09] MEDS: Ketorolac 30 MG/ML Syringe IV (04:51)
[2022-02-09] MEDS: Ondansetron 4 MG/2 ML Vial IV (04:51)
[2022-02-09] MEDS: 0.9% Saline Lock 10 ML Syringe IV (04:57)
[2022-02-09 05:10] VITALS: BP 94/58; PULSE 77; RESP 14; TEMP 36.7; O2SAT 98
[2022-02-09 05:13] LABS: Absolute Lymphocyte Count 1.16 X10^3/uL (0.83-4.51); Absolute Neutrophil Count 6.4 X10^3/uL (2.0-7.7); Eosinophil# 0.19 X10^3/uL; Eosinophils% 2.3 % (0-5); Hematocrit 26.2 % (37-47); Hemoglobin 8.4 g/dL (12.0-15.0); Lymphocyte # 1.16 X10^3/ul (0.83-4.51); Lymphocyte % 14.2 % (19-41); Mean Corp Hgb Conc 32.1 g/dL (32-36); Mean Corpuscular Hgb 27.5 pg (27.0-32.0); Mean Corpuscular Volume 85.9 fL (81-99); Mean Platelet Vol. 9.5 fl (6.2-12.0); Monocyte# 0.42 X10^3/uL; Monocyte% 5.1 % (0-10); NRBC Flagged by Analyzer 0 % (0-5); Neutrophil # 6.39 X10^3/uL (2.7-7.7); Platelet Count 176 K/mm3 (150-450); RBC Distribution Width CV 12.7 % (11.6-14.6); RBC Distribution Width SD 39.4 fl (35.1-43.9); Red Blood Count 3.05 M/mm3 (4.2-5.4); White Blood Count 8.2 K/mm3 (4.4-11.0)
[2022-02-09 05:27] LABS: Anion Gap 7 (5-15); BUN 8 mg/dL (7-18); BUN/Creat Ratio 10.2 RATIO (10-20); Calcium,Total 8.1 mg/dL (8.5-10.1); Chloride 109 mmol/L (98-107); Creatinine, Serum 0.78 mg/dL (0.55-1.02); EST Glomerular Filtration Rate 89 mL/min (>60); Est Glom Filt Rate - Afr Amer 108 mL/min (>60); Estimated Creatinine Clearance 81.14 ml/min; Glucose 111 mg/dL (74-106); Potassium 3.8 mmol/L (3.5-5.1); Sodium Level 140 mmol/L (136-145)
--- NOTE | 2022-02-09 06:43 | NURSING ---
Fasting serum glucose 111 mg/dL per BMP draw.
[2022-02-09 07:51] VITALS: BP 96/63; PULSE 78; RESP 17; TEMP 36.4; O2SAT 97
--- NOTE | 2022-02-09 08:55 | PCM.PN.OB ---
Subjective Subjective No vomiting since 5pm. Lightheadedness also resolved. Denies fever, chills, nausea, lightheadedness, fatigue. She reports feeling so much better today and would like to go home. Passing flatus. No bowel movement yet. VOiding without difficulty. Nursing is going well. Objective Data Objective Data Vital Signs: Vital Signs Temp Pulse Resp BP Pulse Ox 97.6 F L 78 17 96/63 97 02/09/22 07:51 02/09/22 07:51 02/09/22 07:51 02/09/22 07:51 02/09/22 07:51 Oxygen Delivery Method Room Air Weight: 73.391 kg Body Mass Index (BMI) 29.5 Intake & Output: Intake and Output for Last 24 Hours 02/07/22 02/08/22 02/09/22 23:59 23:59 23:59 Intake Total 4709.85 / 4709.85 50 / 50 Output Total 1950 / 1950 1400 / 1400 Balance 2759.85 / 2759.85 -1350 / -1350 Lab / Micro Data Result Diagrams: 02/09/22 05:02 02/09/22 05:02 Labs: Laboratory Results - last 24 hr 02/08/22 17:55: WBC 8.6, RBC 3.10 L, Hgb 8.6 L, Hct 26.7 L, MCV 86.1, MCH 27.7, MCHC 32.2, RDW Std Deviation 39.6, RDW Coeff of Bright 12.6, Plt Count 173, MPV 9.8 02/09/22 05:02: WBC 8.2, RBC 3.05 L, Hgb 8.4 L, Hct 26.2 L, MCV 85.9, MCH 27.5, MCHC 32.1, RDW Std Deviation 39.4, RDW Coeff of Bright 12.7, Plt Count 176, MPV 9.5, Immature Gran % (Auto) 0.400, Neut % (Auto) 78.0 H, Lymph % (Auto) 14.2 L, [place] % (Auto) 5.1, Eos % (Auto) 2.3, Baso % (Auto) 0.0, Absolute Neuts (auto) 6.4, Absolute Lymphs (auto) 1.16, Nucleated RBC % 0 02/09/22 05:02: Sodium 140, Potassium 3.8, Chloride 109 H, Carbon Dioxide 24.0, Anion Gap 7, BUN 8, Creatinine 0.78, Estim Creat Clear Calc 81.14, Est GFR (MDRD) Af Amer 108, Est GFR (MDRD) Non-Af 89, BUN/Creatinine Ratio 10.2, Glucose 111 H, Calcium 8.1 L Physical Exam Const alert, oriented x3 and no apparent distress Resp normal respiratory effort, normal air movement and clear to auscultation bilaterally Cardio regular rate, regular rhythm, S1 normal heart sound and S2 normal heart sound GI normal to inspection, nondistended, normoactive bowel sounds, soft to palpation, non-tender and non-distended GI Narrative: incisional dresing c/d/i Manual OB Exam: other lochia scant Uterus Palpation: uterus fundus firm Extremity no calf tenderness Assessment & Plan (1) delivery delivered: PLAN: POD#1 s/p RLTCS A positive Routine postop care Anemia with no significant worsening Post op nausea/vomiting resolved Willl plan to d/c later today
[2022-02-09] MEDS: Prenatal Vits Tablet 1 TABLET PO (09:09)
[2022-02-09] MEDS: Senna/Docusate Sodium 1 Tablet PO (09:09)
[2022-02-09] MEDS: Ibuprofen 600 MG Tablet PO (12:49)
[2022-02-09 15:14] VITALS: BP 113/64; PULSE 79; RESP 16; TEMP 36.6
--- NOTE | 2022-02-13 | PCM.DC.SUM ---
Providers Date of Admission: 02/08/22 Primary Care Physician: No Primary Care Phys Reason For Visit: /C SECTION DELIVERY Diagnosis Discharge Diagnosis (1) delivery delivered: Status: Acute Code(s): O82 - Encounter for delivery without indication Medications at Discharge Home Medications Prenatabs FA 1 tab PO DAILY 06/04/18 docusate sodium 100 mg PO BID 02/08/22 ferrous sulfate 325 mg PO BID #0 tab 02/09/22 ibuprofen 600 mg PO Q8H PRN PRN #30 tab 02/09/22 oxycodone 5 mg PO Q6H PRN PRN 7 Days #20 tab 02/09/22 Hospital Course Operations section Procedures None Summary of Care Provided Hospital Course: 31yo presented at 39 2/7 weeks gestation for repeat section. She underwent an uncomplicated low transverse section. Her postoperative course was complicated by nausea and vomiting. She was NPO and given antiemetics around the clock with improvement and tolerated CLD. She advanced a regular diet on postoperative day 1 and tolerated this without further nausea or vomiting. She was out of bed, ambulating, voiding without difficulty and pain well controlled. She was discharged to home on post-operative day #1. Weight / BMI Weight Weight: 73.391 kg Body Mass Index (BMI) 29.5 ABG / Lab / Microbiology Data Result Diagrams: 02/09/22 05:02 02/09/22 05:02 D/C Instructions Discharge Diet: No restrictions Discharge Activity: Return to Normal Activity May resume sexual activity in: 4-6 weeks Lifting Restricted to (Lbs): 10 Call your doctor if your incision/area has: Continuous Slow Oozing, Sudden Increased Bleeding, Increased Pain/ Swelling, Increased Redness, Foul Smelling Discharge and Swelling at the incision site Call your doctor if you observe: Fever of 101 or Higher, Inability to urinate, Inability to have a bowel movement, Using more than 1 pad per hour, Shortness of breath, Dizziness, Chest pain and Uncontrolled pain Suture Line Care: Avoid Pulling/Pushing Remove Dressing in: 4 days Cleanse incision/area with: Soap & Water Please Follow Up With: Melva Hills MD When: 2 weeks for postop visit Meaningful Use Info Meaningful Use Diagnoses (Choose all that apply): None applicable Discharge Plan Admission Admit Date/Time: 02/08/22 05:16 Primary Reason for Your Visit: section Attending Provider: Melva Hills Primary Care Provider: Care Physician,No Primary Instructions Patient Instructions: After a Discharge Orders/Prescriptions Prescriptions: New ibuprofen 600 mg Tablet 600 mg PO Q8H PRN PRN (Reason: pain) Qty: 30 RF: 0 oxycodone 5 mg Tablet 5 mg PO Q6H PRN PRN (Reason: Pain Score 4-10) 7 Days Qty: 20 RF: 0 Continued Prenatabs FA 1 TABLET tablet 1 tab PO DAILY RF: 0 docusate sodium 100 MG capsule 100 mg PO BID RF: 0 Changed ferrous sulfate 325 MG tablet 325 mg PO BID Qty: 0 RF: 0 Referrals / Follow Up: Care Physician,No Primary [Primary Care Provider] - Disposition Disposition (needs filled in before D/C Order can be placed): Home, Self Care
== END 2022-02-09 18:56 | disposition home or self-care (01) | DRG 788 ==
PROVIDERS: Admitting Provider Obstetrics & Gynecology; Visit Provider Obstetrics & Gynecology
PROC: 10D00Z1 Extraction of Products of Conception, Low, Open Approach (ICD-10-PCS; CPT 59514; principal; 2022-02-08 07:15)
DX: O34.219 Maternal care for unspecified type scar from previous cesarean delivery (principal); O26.23 Pregnancy care for patient with recurrent pregnancy loss, third trimester; Z37.0 Single live birth; Z3A.39 39 weeks gestation of pregnancy
CPT/HCPCS: 59050; 80048; 85025; 85027; 86850; 86900; 86901; 99218; J7120; A4216; G0378; J2405

== ENCOUNTER → 2022-03-16 | Outpatient (CLI) | payer BC, SELFPAY ==
[2022-03-23 12:17] LABS: HPV APTIMA, High Risk Negative (Negative)
== END | disposition home or self-care (01) ==
LOC: LABSPEC 11:21
PROVIDERS: Visit Provider Obstetrics & Gynecology
DX: Z12.4 Encounter for screening for malignant neoplasm of cervix (principal)
CPT/HCPCS: 87624; 88175; G0145

== ENCOUNTER → 2023-09-06 | Outpatient (CLI) | payer BC, SELFPAY ==
[2023-09-09 06:09] LABS: Chlamydia By Nucleic Acid AMP Negative (Negative); Gonococcus By Nucleic Acid AMP Negative (Negative)
== END | disposition home or self-care (01) ==
LOC: LABSPEC 16:05
PROVIDERS: Referring Provider Registered Nurse; Visit Provider Registered Nurse
DX: O09.299 Supervision of pregnancy with other poor reproductive or obstetric history, unspecified trimester (principal); Z3A.00 Weeks of gestation of pregnancy not specified; Z86.32 Personal history of gestational diabetes
CPT/HCPCS: 87086; 87491; 87591

== ENCOUNTER → 2023-12-01 | Outpatient (CLI) | payer BC, SELFPAY ==
--- OUTSIDE RECORDS SUMMARY | 2023-12-01 08:46 | XMS RPT_ITS | CCD ---
Author Name Unknown Address [address] [place] [address] Organization [facility] Care Team Providers Care Corporate Development Analyst Name Role Phone Unavailable Primary Care Provider Unavailjudy e NO PRIMARY CAREMD Primary Care Unavailable STEPHEN CEDILLO Referring Unavailable LOPEZ ARMSTRONG Attending Unavailable Medications Current Medications Medication Drug Class(es) Dates Sig (Normalized) Sig (Original) amoxicillin 875 mg / clavulanate 125 mg oral tablet (1 source) Penicillin-class Antibacterial Start: 10-22-2023 End: 10-29-2023 take 1 tablet by mouth every twelve hours amoxicillin-clav ulanate potassium (AUGMENTIN) 875-125 mg per tablet Indications: Persistent cough Take 1 tablet by mouth every 12 hours for 7 days. 14 tablet 0 10/22/2023 10/29/2023 Active Completed/Discontinued Medications Medication Drug Class(es) Dates Sig (Normalized) Sig (Original) [id number] 200 actuat albuterol 0.09 mg/actuat metered dose inhaler (6 sources) beta2-Adrenergic Agonist Start: 06-24-2023 take 2 puff(s) by inhalation every four hours as needed albuterol HFA (PROAIR HFA) 90 mcg/actuation inhaler Inhale 2 Puffs as instructed every 4 hours as needed. 18 g 0 06/24/2023 Active Problems Problem Classification Problem Date Documented Da te Episodic/Chronic Other lower respiratory disease (1 source) Persistent cough; Translations: [Persistent cough] 10-22-2023 Episodic Other upper respiratory infections (1 source) Acute pansinusitis; Translations: [Acute pansinusitis, unspecified] 06-24-2023 Episodic Results Test Name Value Interpretation Reference Range Facil ity Vital Signs Date Time Vital Sign Value Performing Clinician Faci lity 10-22-2023 14:47-0500 Body height 157.5 cm Kinza Wormald PA-C Work Phone: [facility] 10-22-2023 14:47-0500 Body temperature 97 [degF] Kinza Wormald PA-C Work Phone: [facility] 10-22-2023 14:47-0500 Body weight 65.2 kg Kinza Wormald PA-C Work Phone: [facility] 10-22-2023 14:47-0500 Diastolic blood pressure 79 mm[Hg] Kinza Wormald PA-C Work Phone: [facility] 10-22-2023 14:47-0500 Heart rate 82 /min Kinza Wormald PA-C Work Phone: [facility] 10-22-2023 14:47-0500 Respiratory rate 16 /min Kinza Wormald PA-C Work Phone: [facility] 10-22-2023 14:47-0500 SaO2% (BldA) [Mass fraction] 97 % Kinza Wormald PA-C Work Phone: [facility] 10-22-2023 14:47-0500 Systolic blood pressure 112 mm[Hg] Kinza Wormald PA-C Work Phone: [facility] 06-24-2023 08:03-0400 Body height 157.5 cm Mary Lou Slabaugh PA-C Work Phone: [facility] 06-24-2023 08:03-0400 Body temperature 98.2 [degF] Mary Lou Slabaugh PA-C Work Phone: [facility] 06-24-2023 08:03-0400 Body weight 65.91 kg Mary Lou Slabaugh PA-C Work Phone: [facility] 06-24-2023 08:03-0400 Diastolic blood pressure 81 mm[Hg] Mary Lou Slabaugh PA-C Work Phone: [facility] 06-24-2023 08:03-0400 Heart rate 93 /min Mary Lou Slabaugh PA-C Work Phone: [facility] 06-24-2023 08:03-0400 Respiratory rate 18 /min Mary Lou Jacobnina PA-C Work Phone: [facility] 06-24-2023 08:03-0400 SaO2% (BldA) [Mass fraction] 98 % Mary Lou An PA-C Work Phone: [facility] 06-24-2023 08:03-0400 Systolic blood pressure 119 mm[Hg] Mary Lou An PA-C Work Phone: [facility] Encounters Encounter Date Encounter Type Care Provider Facility Start: 11-09-2023 End: 11-09-2023 ambulatory MD PRIMARY CARE [facility] Start: 10-22-2023 End: 10-22-2023 ambulatory Facility:[facility] Start: 10-22-2023 End: 10-22-2023 Patient encounter procedure Kinza TILLMAN-C Work Phone: [facility] Plan of Treatment Date Care Activity Detail Author Start: 10-02-2023 Depression Assessment [facility] Start: 06-02-2023 Influenza vaccination Influenza Vacc ine (#1) [facility] Start: 10-02-2022 Depression Assessment [facility] Start: 2018 HPV Testing HPV Testing [facility] Start: 2018 Screening for malign ant neoplasm of cervix HPV Testing [facility] Start: 2009 Pap Testing Pap Testing [facility] Start: 2009 Screening for malign ant neoplasm of cervix Pap Testing [facility] Start: 2007 Urine microalbumin profile DTaP,Tdap,Td Vaccine (1 - Tdap) [facility] Start: 2006 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 PCP 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 Disease Visit Annual PCP Team Chronic Disease Visit [facility] Start: 2006 Hepatitis C Screening Hepatitis C [facility] Start: 2006 Hepatitis C screening Hepatitis C [facility] Start: 2006 HIV Screening HIV Screening [facility] Start: 2006 HIV screening HIV Screening [facility] Start: 2006 Spirometry Spirometry [facility] Start: 1994 Pneumococcal vaccination Pneum ococcal Vaccine (1 - PCV) [facility] Start: 01-15-1989 Covid-19 Vaccine (#1) Covid-19 Vacci ne (#1) [facility] Start: 1988 Hepatitis B Vaccine (1 of 3 - 3-dose series) Hepatitis B Vaccine (1 of 3 - 3-dose series) [facility] Immunizations Immunization Date Immunization Notes Care Provider Fa lesly 07-11-2019 influenza, injectabl e, quadrivalent, preservative free Mary Lou Slabaugh PA-C Work Phone: [facility] Work Phone: 07-11-2019 influenza virus vaccine, unspecified formulation Mary Lou Slabaugh PA-C Work Phone: [facility] 07-04-2014 influenza, seasonal, injectable, preservative free Mary Lou Slabaugh PA-C Work Phone: [facility] Work Phone: 06-28-2011 influenza, seasonal, injectable, preservative free Mary Lou Slabaugh PA-C Work Phone: [facility] Work Phone: Payers Date Payer Category Payer Unknown [id number] 2021 Unknown [id number] 1990 Unknown [id number] Social History Date Type Detail Facility Start: 10-05-2018 Tobacco smoking stat us NHIS Never smoked tobacco [facility] Start: 10-05-2018 Tobacco use and exposure Smoke less tobacco non-user [facility] Start: 05-08-2022 [facility] Start: 09-10-2020 End: 05-08-2022 History of Social function [facility] Start: 09-10-2020 End: 05-08-2022 Tobacco use panel [facility] National Score (1-10 0), lower number is lower risk Not on file [facility] Start: 1988 Sex Assigned At Not on file C [facility] Progress note 10-22-2023 Note Date & Type Note Facility 10-22-2023 Note HNO ID: [id number] Author: KINZA PERES PA-C Service: ? Author Type: Physician Online Editor Type: Progress Notes Filed: 10/22/2023 14:59 Note Text: Subjective Marleni Quipse is a 33 year old female with no significant past medical history who presents [facility] today for evaluation of cough x 1 month. She denies having any fevers. She is currently 17 weeks . Review of Systems Constitutional: Negative for chills, diaphoresis and fever. HENT: Negative for congestion, ear pain and sore throat. Eyes: Negative for discharge and redness. Respiratory: Positive for cough. Negative for shortness of breath. Skin: Negative for rash and wound. Neurological: Negative for weakness and headaches. All other systems reviewed and are negative. Objective LMP 10/02/2019 (Approximate) Physical Exam Vitals reviewed. Constitutional: General: She is not in acute distress. Appearance: Normal appearance. She is normal weight. She is not ill-appearing or toxic-appearing. Comments: The patient appears to be non-toxic, in no acute distress, and resting comfortably on the table. HENT: Head: Normocephalic and atraumatic. Right Ear: Ear canal and external ear normal. Tympanic membrane is scarred. Left Ear: Ear canal and external ear normal. Tympanic membrane is scarred. Eyes: Extraocular Movements: Extraocular movements intact. Cardiovascular: Rate and Rhythm: Normal rate and regular rhythm. Heart sounds: Normal heart sounds. No murmur heard. No friction rub. No gallop. Pulmonary: Effort: Pulmonary effort is normal. No respiratory distress. Breath sounds: Normal breath sounds. No wheezing. Musculoskeletal: General: Normal range of motion. Cervical back: Normal range of motion. Skin: General: Skin is warm and dry. Findings: No erythema or rash. Neurological: General: No focal deficit present. Mental Status: She is alert and oriented to person, place, and time. Mental status is at baseline. Psychiatric: Mood and Affect: Mood normal. Behavior: Behavior normal. Thought Content: Thought content normal. Assessment and Plan Lungs are clear to auscultation bilaterally however as patient's cough has been persistent for 1 month, I feel that she would benefit from a course of antibiotics. Patient counseled regarding suspected diagnosis and given prescription for Augmentin. Advised to follow-up with her primary care provider as needed for any new or worsening symptoms. ASSESSMENT/PLAN: 1. Persistent cough - ICD9: 786.2, ICD10: R05.3 - AMOXICILLIN 875 MG-POTASSIUM CLAVULANATE 125 MG TABLET Kinza Peres PA-C Medical Decision Making: Problems: Low: Acute, uncomplicated illness or injury Risk: Minimal: Minimal risk from testing/treatment Moderate: Drug management Medical Decision Making Level: 3 - Low I spent a total of 20 minutes on the date of the service which included preparing to see the patient, [id number] patient care, completing clinical documentation, performing a medically appropriate examination, counseling and educating the patient/family/caregiver, and ordering medications, tests, or procedures. [facility] Instructions 10-22-2023 Patient Instructions Note Date & Type Note Facility 10-22-2023 Instructions Kinza Peres PA-C - 10/22/2023 2:55 PM EST Type of Remedy: Allergy Safe Medications to Take During Diphenhydramine (Benadryl ) Loratidine (Claritin ) Cetirizine (Zyrtec ) Type of Remedy: Cold and Flu Safe Medications to Take During Diphenhydramine (Benadryl)* Dextromethorphan (Robitussin )* Guaifenesin (Mucinex [plain]) * Vicks Vapor Rub mentholated cream Mentholated or non-mentholated cough drops (Sugar-free cough drops for gestational diabetes should not contain blends of herbs or aspartame) Pseudoephedrine ([Sudafed ] after 1st trimester) Acetaminophen (Tylenol )* Saline nasal drops or spray Warm salt/water gargle *Note: Do not take the SA (Sustained Action) form of these drugs or the Multi-Symptom form of these drugs. Do not use Nyquil due to its high alcohol content. Type of Remedy: Diarrhea Safe Medications to Take During Loperamide ([Imodium ] after 1st trimester, for 24 hours only) Type of Remedy: Constipation Safe Medications to Take During Methylcellulose fiber (Citrucel ) Docusate (Colace ) psyllium (Fiberall , Metamucil ) polycarbophil (FiberCon ) polyethylene glycol (MiraLAX )* *Occasional use only Type of Remedy: First Aid Ointment Safe Medications to Take During Bacitracin Neomycin/polymyxin B/bacitracin (Neosporin ) Type of Remedy: Headache Safe Medications to Take During Acetaminophen (Tylenol) Type of Remedy: Heartburn Safe Medications to Take During Aluminum hydroxide/magnesium carbonate (Gaviscon )* Famotidine (Pepcid AC ) Aluminum hydroxide/magnesium hydroxide (Maalox ) Calcium carbonate/magnesium carbonate (Mylanta ) Calcium carbonate (Titralac , Tums ) Ranitidine (Zantac ) *Occasional use only Type of Remedy: Hemorrhoids Safe Medications to Take During Phenylephrine/mineral oil/petrolatum (Preparation H ) Witch demetrio (Tucks pads or ointment) Type of Remedy: Insect repellant Safe Medications to Take During N,D-oblyhwq-bpfb-toluamide (DEET ) Type of Remedy: Nausea and Vomiting Safe Medications to Take During Diphenhydramine (Benadryl) Vitamin B6 Type of Remedy: Rashes Safe Medications to Take During Diphenhydramine cream (Benadryl) Hydrocortisone cream or ointment Oatmeal bath (Aveeno ) Type of Remedy: Sleep Safe Medications to Take During Diphenhydramine (Unisom SleepGels , Benadryl) Type of Remedy: Yeast Infection Safe Medications to Take During Miconazole (Monistat ) *Please note: No drug can be considered 100% safe to use during . documented in this encounter [facility] History of Present illness Narrative 10-22-2023 Kinza Peres PA-C - 10/22/2023 2:41 PM EST Note Date & Type Note Facility 10-22-2023 History of Presen t illness Narrative Subjective Marleni Quispe is a 33 year old female with no significant past medical history who presents [facility] today for evaluation of cough x 1 month. She denies having any fevers. She is currently 17 weeks . Review of Systems Constitutional: Negative for chills, diaphoresis and fever. HENT: Negative for congestion, ear pain and sore throat. Eyes: Negative for discharge and redness. Respiratory: Positive for cough. Negative for shortness of breath. Skin: Negative for rash and wound. Neurological: Negative for weakness and headaches. All other systems reviewed and are negative. Objective LMP 10/02/2019 (Approximate) Physical Exam Vitals reviewed. Constitutional: General: She is not in acute distress. Appearance: Normal appearance. She is normal weight. She is not ill-appearing or toxic-appearing. Comments: The patient appears to be non-toxic, in no acute distress, and resting comfortably on the table. HENT: Head: Normocephalic and atraumatic. Right Ear: Ear canal and external ear normal. Tympanic membrane is scarred. Left Ear: Ear canal and external ear normal. Tympanic membrane is scarred. Eyes: Extraocular Movements: Extraocular movements intact. Cardiovascular: Rate and Rhythm: Normal rate and regular rhythm. Heart sounds: Normal heart sounds. No murmur heard. No friction rub. No gallop. Pulmonary: Effort: Pulmonary effort is normal. No respiratory distress. Breath sounds: Normal breath sounds. No wheezing. Musculoskeletal: General: Normal range of motion. Cervical back: Normal range of motion. Skin: General: Skin is warm and dry. Findings: No erythema or rash. Neurological: General: No focal deficit present. Mental Status: She is alert and oriented to person, place, and time. Mental status is at baseline. Psychiatric: Mood and Affect: Mood normal. Behavior: Behavior normal. Thought Content: Thought content normal. Assessment and Plan Lungs are clear to auscultation bilaterally however as patient's cough has been persistent for 1 month, I feel that she would benefit from a course of antibiotics. Patient counseled regarding suspected diagnosis and given prescription for Augmentin. Advised to follow-up with her primary care provider as needed for any new or worsening symptoms. ASSESSMENT/PLAN: 1. Persistent cough - ICD9: 786.2, ICD10: R05.3 - AMOXICILLIN 875 MG-POTASSIUM CLAVULANATE 125 MG TABLET Kinza Peres PA-C Medical Decision Making: Problems: Low: Acute, uncomplicated illness or injury Risk: Minimal: Minimal risk from testing/treatment Moderate: Drug management Medical Decision Making Level: 3 - Low I spent a total of 20 minutes on the date of the service which included preparing to see the patient, [id number] patient care, completing clinical documentation, performing a medically appropriate examination, counseling and educating the patient/family/caregiver, and ordering medications, tests, or procedures. documented in this encounter [facility] Progress note 06-24-2023 Note Date & Type Note Facility 06-24-2023 Note HNO ID: [id number] Author: Mary Lou An PA-C Service: ? Author Type: Physician Online Editor Type: Progress Notes Filed: 06/24/2023 8:17 AM Note Text: Surgical mask, face shield, N95, and gloves worn for all in-person care. 06/24/2023 Patient presents with: Sinusitis: Sinus congestion SUBJECTIVE: This is a 32 year old that is here today for concern for a sinus infection. Complains of sinus pressure/congestion/drainage and pain in the cheeks x 9 days. She has new pain in the cheeks and teeth over the past 2 days. Has new frontal BARAJAS in the past 2 days. Cough is minimal, but she would like a refill of her albuterol inhaler Denies fever, chills, sweats, or fatigue. Patient denies wheezing, shortness of breath, increased WOB, or chest pain. COVID exposure: none Influenza exposure: none RSV exposure: none Covid Immunization Dates Overdue - Covid-19 Vaccine (1) Overdue - never done No completion, postpone, frequency change, or communication history exists for this topic. COVID vaccine: none History of COVID: - Influenza vaccine: - Asthma: yes Pneumonia: none Tobacco: none Pain on scale of 0-10 with 0 being no pain and 10 being greatest pain: 4 Nothing makes the symptoms better. Nothing makes them worse. Self-treatment:. Dayquil, Nyquil The severity is mild and the symptoms are not improving. The patient did not have a similar problem in the last 3 months. The patient did not take any antibiotics in the last 3 months. Barriers to learning: none. Reviewed meds, OTCs, herbals or supplements. Reviewed allergies, medications, social history, and past medical history. PAST MEDICAL HISTORY Diagnosis Date NEGATIVE MEDICAL HISTORY ALLERGIES Patient has no known allergies. MEDICATIONS Current Outpatient Medications Medication Sig albuterol (PROVENTIL) 2.5 mg /3 mL (0.083 %) nebulizer solution 2.5 mg 3 times daily as needed over 5-15 minutes for wheezing and shortness of breath. ondansetron (ZOFRAN) 4 mg tablet Take 4 mg by mouth as needed. albuterol HFA (PROAIR HFA) 90 mcg/actuation inhaler Inhale 2 Puffs as instructed every 4 hours as needed. No current facility-administered medications for this visit. Medications and allergies reviewed by this provider. SOCIAL HISTORY Social History Tobacco Use Smoking status: Never Smokeless tobacco: Never REVIEW OF SYSTEMS Review of Systems ROS: constitutional: neg, HENT- sinus pressure/pain, Eyes- neg, heart-neg, respiratory- Cough, GI-neg, -neg, skin-neg, Allergy- neg, lymph-neg, neuro-neg, psych-neg- All systems neg except as noted above in HPI. OBJECTIVE: BP 119/81 (BP Site: Right Arm, BP Position: Sitting, BP Cuff Size: Regular Adult) Pulse 93 Temp 36.8 ?C (98.2 ?F) (Right Tympanic) Resp 18 Ht 157.5 cm (5' 2 ) Wt 65.9 kg (145 lb 4.8 oz) LMP 10/02/2019 (Approximate) SpO2 98% BMI 26.58 kg/m? . Vital signs reviewed by this provider. Physical Exam Vitals reviewed. Constitutional: General: She is not in acute distress. Appearance: Normal appearance. She is well-developed and normal weight. She is not ill-appearing, toxic-appearing or diaphoretic. HENT: Head: Normocephalic and atraumatic. No right periorbital erythema or left periorbital erythema. Salivary Glands: Right salivary gland is not diffusely enlarged or tender. Left salivary gland is not diffusely enlarged or tender. Right Ear: Tympanic membrane, ear canal and external ear normal. Left Ear: Tympanic membrane, ear canal and external ear normal. Nose: Congestion and rhinorrhea present. Right Sinus: Maxillary sinus tenderness and frontal sinus tenderness present. Left Sinus: Maxillary sinus tenderness and frontal sinus tenderness present. Mouth/Throat: Lips: No lesions. Mouth: Mucous membranes are moist. No oral lesions. Dentition: No gum lesions. Tongue: No lesions. Tongue does not deviate from midline. Palate: No mass and lesions. Pharynx: Oropharynx is clear. No pharyngeal swelling, oropharyngeal exudate, posterior oropharyngeal erythema or uvula swelling. Tonsils: No tonsillar exudate or tonsillar abscesses. Eyes: General: Lids are normal. No scleral icterus. Right eye: No discharge. Left eye: No discharge. Extraocular Movements: Extraocular movements intact. Conjunctiva/sclera: Conjunctivae normal. Pupils: Pupils are equal, round, and reactive to light. Cardiovascular: Rate and Rhythm: Normal rate and regular rhythm. Heart sounds: Normal heart sounds. Pulmonary: Effort: Pulmonary effort is normal. Breath sounds: Normal breath sounds and air entry. Musculoskeletal: Cervical back: Full passive range of motion without pain. No spinous process tenderness or muscular tenderness. Lymphadenopathy: Head: Right side of head: No submental, submandibular, tonsillar, preauricular or posterior auricular adenopathy. Left side of head: No submental, submandibular, tonsillar, preauric (more content not included)... [facility] Instructions 06-24-2023 Patient Instructions Note Date & Type Note Facility 06-24-2023 Instructions Mary Lou An PA-C - 06/24/2023 8:11 AM EDT ASSESSMENT/PLAN: 1. Acute non-recurrent pansinusitis - - DOXYCYCLINE MONOHYDRATE 100 MG CAPSULE - ALBUTEROL- refill sent Encourage fluids, rest. OTC Decongestants Flonase Zyrtec Tylenol and Motrin for pain and fever Saline Nasil spray, Neti Pot, vaporizer, Vicks. Try Cepocol lozenges or Chloraseptic throat spray. Warm salt water gargles. Cough and deep breath- 10x/hr while awake. May use OTC Mucinex DM as directed for cough Call PCP if sx worsen or no better. If symptoms worsen, or new symptoms develop go to ER. If you have worsening of breathing or breathing changes- go to ER. If you have persistent fever unrelieved by Tylenol/Motrin- go to the ER. Follow up as needed. Barriers to learning: none. The patient verbalizes understanding and is in agreement with plan of care. - Red flags for in person care discussed - All questions answered Mary Lou An PA-C documented in this encounter [facility] History of Present illness Narrative 06-24-2023 Mary Lou An PA-C - 06/24/2023 8:01 AM EDT Note Date & Type Note Facility 06-24-2023 History of Presen t illness Narrative Surgical mask, face shield, N95, and gloves worn for all in-person care. 06/24/2023 Patient presents with: Sinusitis: Sinus congestion SUBJECTIVE: This is a 32 year old that is here today for concern for a sinus infection. Complains of sinus pressure/congestion/drainage and pain in the cheeks x 9 days. She has new pain in the cheeks and teeth over the past 2 days. Has new frontal BARAJAS in the past 2 days. Cough is minimal, but she would like a refill of her albuterol inhaler Denies fever, chills, sweats, or fatigue. Patient denies wheezing, shortness of breath, increased WOB, or chest pain. COVID exposure: none Influenza exposure: none RSV exposure: none Covid Immunization Dates Overdue - Covid-19 Vaccine (1) Overdue - never done No completion, postpone, frequency change, or communication history exists for this topic. COVID vaccine: none History of COVID: - Influenza vaccine: - Asthma: yes Pneumonia: none Tobacco: none Pain on scale of 0-10 with 0 being no pain and 10 being greatest pain: 4 Nothing makes the symptoms better. Nothing makes them worse. Self-treatment:. Dayquil, Nyquil The severity is mild and the symptoms are not improving. The patient did not have a similar problem in the last 3 months. The patient did not take any antibiotics in the last 3 months. Barriers to learning: none. Reviewed meds, OTCs, herbals or supplements. Reviewed allergies, medications, social history, and past medical history. PAST MEDICAL HISTORY Diagnosis Date NEGATIVE MEDICAL HISTORY ALLERGIES Patient has no known allergies. MEDICATIONS Current Outpatient Medications Medication Sig albuterol (PROVENTIL) 2.5 mg /3 mL (0.083 %) nebulizer solution 2.5 mg 3 times daily as needed over 5-15 minutes for wheezing and shortness of breath. ondansetron (ZOFRAN) 4 mg tablet Take 4 mg by mouth as needed. albuterol HFA (PROAIR HFA) 90 mcg/actuation inhaler Inhale 2 Puffs as instructed every 4 hours as needed. No current facility-administered medications for this visit. Medications and allergies reviewed by this provider. SOCIAL HISTORY Social History Tobacco Use Smoking status: Never Smokeless tobacco: Never REVIEW OF SYSTEMS Review of Systems ROS: constitutional: neg, HENT- sinus pressure/pain, Eyes- neg, heart-neg, respiratory- Cough, GI-neg, -neg, skin-neg, Allergy- neg, lymph-neg, neuro-neg, psych-neg- All systems neg except as noted above in HPI. OBJECTIVE: BP 119/81 (BP Site: Right Arm, BP Position: Sitting, BP Cuff Size: Regular Adult) Pulse 93 Temp 36.8 C (98.2 F) (Right Tympanic) Resp 18 Ht 157.5 cm (5' 2 ) Wt 65.9 kg (145 lb 4.8 oz) LMP 10/02/2019 (Approximate) SpO2 98% BMI 26.58 kg/m . Vital signs reviewed by this provider. Physical Exam Vitals reviewed. Constitutional: General: She is not in acute distress. Appearance: Normal appearance. She is well-developed and normal weight. She is not ill-appearing, toxic-appearing or diaphoretic. HENT: Head: Normocephalic and atraumatic. No right periorbital erythema or left periorbital erythema. Salivary Glands: Right salivary gland is not diffusely enlarged or tender. Left salivary gland is not diffusely enlarged or tender. Right Ear: Tympanic membrane, ear canal and external ear normal. Left Ear: Tympanic membrane, ear canal and external ear normal. Nose: Congestion and rhinorrhea present. Right Sinus: Maxillary sinus tenderness and frontal sinus tenderness present. Left Sinus: Maxillary sinus tenderness and frontal sinus tenderness present. Mouth/Throat: Lips: No lesions. Mouth: Mucous membranes are moist. No oral lesions. Dentition: No gum lesions. Tongue: No lesions. Tongue does not deviate from midline. Palate: No mass and lesions. Pharynx: Oropharynx is clear. No pharyngeal swelling, oropharyngeal exudate, posterior oropharyngeal erythema or uvula swelling. Tonsils: No tonsillar exudate or tonsillar abscesses. Eyes: General: Lids are normal. No scleral icterus. Right eye: No discharge. Left eye: No discharge. Extraocular Movements: Extraocular movements intact. Conjunctiva/sclera: Conjunctivae normal. Pupils: Pupils are equal, round, and reactive to light. Cardiovascular: Rate and Rhythm: Normal rate and regular rhythm. Heart sounds: Normal heart sounds. Pulmonary: Effort: Pulmonary effort is normal. Breath sounds: Normal breath sounds and air entry. Musculoskeletal: Cervical back: Full passive range of motion without pain. No spinous process tenderness or muscular tenderness. Lymphadenopathy: Head: Right side of head: No submental, submandibular, tonsillar, preauricular or posterior auricular adenopathy. Left side of head: No submental, submandibular, tonsillar, preauricular or posterior auricular adenopathy. Cervical: No cervical adenopathy. Skin: General: Skin is warm. Capillary Refill: Capillary refill takes less than 2 seconds. Findings: No rash. Neurological: General: No focal deficit present. Mental Status: She is alert and oriented to person, place, and time. Cranial Nerves: No facial asymmetry. Psychiatric: Attention and Perception: Attention normal. Behavior: Behavior is cooperative. ASSESSMENT/PLAN: 1. Acute non-recurrent pansinusitis - ICD9: 461.8, ICD10: J01.40 - DOXYCYCLINE MONOHYDRATE 100 MG CAPSULE - ALBUTEROL- needed a refill Encourage fluids, rest. OTC Decongestants May start Claritin or Zyrtec OTC as directed- helps to dry up runny nose and post nasal drip. Tylenol and Motrin for pain and fever Saline Nasil spray, Neti Pot, vaporizer, Vicks. Try Cepocol lozenges or Chloraseptic throat spray. Warm salt water gargles. Cough and deep breath- 10x/hr while awake. May use OTC Mucinex DM as directed for cough Call PCP if sx worsen or no better. If symptoms worsen, or new symptoms develop go to ER. If you have worsening of breathing or breathing changes- go to ER. If you have persistent fever unrelieved by Tylenol/Motrin- go to the ER. Follow up as needed. Barriers to learning: none. The patient verbalizes understanding and is in agreement with plan of care. - Red flags for in person care discussed - All questions answered Mary Lou An PA-C Medical Decision Making: Problems: Moderate: Acute illness with systemic symptoms Risk: Low: Low risk from testing/treatment Moderate: Drug management Medical Decision Making Level: 4 - Moderate I spent a total of 20 minutes on the date of the service which included preparing to see the patient, [id number] patient care, completing clinical documentation, performing a medically appropriate examination, counseling and educating the patient/family/caregiver, and ordering medications, tests, or procedures. documented in this encounter [facility] Evaluation note Note Date & Type Note Facility documented in this encounter [facility] Evaluation note Note Date & Type Note Facility documented in this encounter [facility] Summary Purpose Family History No Family History Records FoundNo Family History Records Found Advance Directives No Advanced Directives Records FoundNo Advanced Directives Records Found Additional Source Comments Source Comments (unrecognize d section and content) In the event this informatio n is protected by the Federal Confidentiality of Alcohol and Drug Abuse Patient Records regulations: The Federal rules restrict any use of the information to criminally investigate or prosecute any alcohol or drug abuse patient[facility] event this information is protected by the Federal Confidentiality of Alcohol and Drug Abuse Patient Records regulations: The Federal rules restrict any use of the information to criminally investigate or prosecute any alcohol or drug abuse patient.[facility] Reason for Visit (unrecogniz ed section and content) Reason Comments Acute Visit Has cough for 2 week s, hard to sleep. Patient is 17 weeks INFORMATION SOURCE (unrecogn ized section and content) DATE CREATED AUTHOR AUTHOR'S EDUARDO COREA 11/11/2023 [facility] FOR RECORDS PERTAINING TO PATIENTS WHO ARE OR HAVE BEEN ENROLLED IN A CHEMICAL DEPENDENCY/SUBSTANCEABUSE PROGRAM, SOME INFORMATION MAY BE OMITTED. This clinical summary was aggregated from multiple sources. Caution should be exercised in using it in the provision of clinical care. This summary normalizes information from multiple sources, and as a consequence, information in this document may materially change the coding, format and clinical context of patient data. In addition, data may be omitted in some cases. CLINICAL DECISIONS SHOULD BE BASED ON THE PRIMARY CLINICAL RECORDS. [employer] provides no warranty or guarantee of the accuracy or completeness of information in this document.
[2023-12-01 09:09] LABS: Absolute Lymphocyte Count 1.93 X10^3/uL (0.83-4.51); Absolute Neutrophil Count 5.4 X10^3/uL (2.0-7.7); Basophil# 0.03 X10^3/uL; Basophil% 0.4 % (0-1); Eosinophil# 0.22 X10^3/uL; Eosinophils% 2.7 % (0-5); Hematocrit 32.9 % (37-47); Hemoglobin 11.2 g/dL (12.0-15.0); Lymphocyte # 1.93 X10^3/ul (0.83-4.51); Lymphocyte % 23.9 % (19-41); Mean Corpuscular Hgb 31.4 pg (27.0-32.0); Mean Corpuscular Volume 92.2 fL (81-99); Mean Platelet Vol. 9.2 fl (6.2-12.0); Monocyte# 0.43 X10^3/uL; Monocyte% 5.3 % (0-10); NRBC Flagged by Analyzer 0 % (0-5); Neutrophil # 5.42 X10^3/uL (2.7-7.7); Platelet Count 254 K/mm3 (150-450); RBC Distribution Width CV 13.8 % (11.6-14.6); RBC Distribution Width SD 46.3 fl (35.1-43.9); Red Blood Count 3.57 M/mm3 (4.2-5.4); White Blood Count 8.1 K/mm3 (4.4-11.0)
[2023-12-01 09:26] LABS: Hemoglobin A1c 4.7 % (3.8-5.6)
[2023-12-01 10:07] LABS: HIV - WCH Non-Reactive (Nonreactive); Hepatitis B Surface Antigen Non-Reactive (Nonreactive); Hepatitis C Antibody Non-Reactive (Nonreactive); Rubella IgG Reactive (Nonreactive); Syphilis Antibodies Non-reactive
== END | disposition home or self-care (01) ==
PROVIDERS: Referring Provider Registered Nurse; Visit Provider Registered Nurse
DX: O09.299 Supervision of pregnancy with other poor reproductive or obstetric history, unspecified trimester (principal); Z3A.00 Weeks of gestation of pregnancy not specified; Z86.32 Personal history of gestational diabetes
CPT/HCPCS: 36415; 83036; 85025; 86703; 86762; 86780; 86803; 86850; 86900; 86901; 87340

== ENCOUNTER → 2024-01-12 | Outpatient (CLI) | payer BC, SELFPAY ==
[2024-01-12 10:31] LABS: Absolute Lymphocyte Count 2.16 X10^3/uL (0.83-4.51); Basophil# 0.03 X10^3/uL; Basophil% 0.4 % (0-1); Eosinophil# 0.21 X10^3/uL; Eosinophils% 2.7 % (0-5); Hematocrit 30.2 % (37-47); Lymphocyte # 2.16 X10^3/ul (0.83-4.51); Lymphocyte % 27.9 % (19-41); Mean Corp Hgb Conc 33.1 g/dL (32-36); Mean Corpuscular Hgb 30.5 pg (27.0-32.0); Mean Corpuscular Volume 92.1 fL (81-99); Monocyte# 0.24 X10^3/uL; Monocyte% 3.1 % (0-10); NRBC Flagged by Analyzer 0 % (0-5); Neutrophil # 5.04 X10^3/uL (2.7-7.7); Neutrophil % 65.1 % (47-70); Platelet Count 238 K/mm3 (150-450); RBC Distribution Width CV 12.4 % (11.6-14.6); RBC Distribution Width SD 42.1 fl (35.1-43.9); Red Blood Count 3.28 M/mm3 (4.2-5.4); White Blood Count 7.7 K/mm3 (4.4-11.0)
[2024-01-12 10:34] LABS: Glucose Challenge Gest 1H 50g 146 mg/dL (70-140)
[2024-01-12 11:08] LABS: HIV - WCH Non-Reactive (Nonreactive); Syphilis Antibodies Non-reactive
== END | disposition home or self-care (01) ==
LOC: PAVLAB 09:58
PROVIDERS: Referring Provider Obstetrics & Gynecology; Visit Provider Obstetrics & Gynecology
DX: O09.299 Supervision of pregnancy with other poor reproductive or obstetric history, unspecified trimester (principal); O09.92 Supervision of high risk pregnancy, unspecified, second trimester; Z86.32 Personal history of gestational diabetes; Z3A.00 Weeks of gestation of pregnancy not specified
CPT/HCPCS: 36415; 82950; 85025; 86703; 86780

== ENCOUNTER → 2024-02-09 | Outpatient (CLI) | payer BC, SELFPAY ==
[2024-02-09 10:40] LABS: Bedside Glucose 78 mg/dL (74-106)
[2024-02-09 11:17] LABS: Glucose GTT-Gestation. Fasting 81 mg/dL (<105)
[2024-02-09 12:33] LABS: Glucose GTT-Gestational 1 Hr 182 mg/dL (<190)
[2024-02-09 12:42] LABS: Glucose GTT-Gestational 2 Hr 177 mg/dL (<165)
[2024-02-09 13:55] LABS: Glucose GTT-Gestational 3 Hr 96 L (<145)
== END | disposition home or self-care (01) ==
LOC: LAB 09:50
PROVIDERS: Referring Provider Obstetrics & Gynecology; Visit Provider Obstetrics & Gynecology
DX: Z13.1 Encounter for screening for diabetes mellitus (principal)
CPT/HCPCS: 36415; 82951; 82952; 82962

== ENCOUNTER → 2024-02-27 | Outpatient (CLI) | payer BC, SELFPAY ==
[2024-02-27 11:46] LABS: Absolute Lymphocyte Count 2.37 X10^3/uL (0.83-4.51); Absolute Neutrophil Count 7.5 X10^3/uL (2.0-7.7); Basophil# 0.04 X10^3/uL; Basophil% 0.4 % (0-1); Eosinophil# 0.27 X10^3/uL; Eosinophils% 2.5 % (0-5); Hematocrit 30.4 % (37-47); Hemoglobin 9.9 g/dL (12.0-15.0); Lymphocyte # 2.37 X10^3/ul (0.83-4.51); Lymphocyte % 21.8 % (19-41); Mean Corp Hgb Conc 32.6 g/dL (32-36); Mean Corpuscular Volume 89.1 fL (81-99); Mean Platelet Vol. 9.4 fl (6.2-12.0); Monocyte# 0.66 X10^3/uL; Monocyte% 6.1 % (0-10); NRBC Flagged by Analyzer 0 % (0-5); Neutrophil # 7.46 X10^3/uL (2.7-7.7); Neutrophil % 68.4 % (47-70); Platelet Count 261 K/mm3 (150-450); RBC Distribution Width CV 12.2 % (11.6-14.6); RBC Distribution Width SD 39.7 fl (35.1-43.9); Red Blood Count 3.41 M/mm3 (4.2-5.4); White Blood Count 10.9 K/mm3 (4.4-11.0)
== END | disposition home or self-care (01) ==
LOC: PAVLAB 11:14
PROVIDERS: Referring Provider Advanced Practice Midwife; Visit Provider Advanced Practice Midwife
DX: O99.019 Anemia complicating pregnancy, unspecified trimester (principal); Z3A.00 Weeks of gestation of pregnancy not specified
CPT/HCPCS: 36415; 85025

== ENCOUNTER → 2024-03-04 | Outpatient (CLI) | payer BC, SELFPAY ==
[2024-03-04 13:37] LABS: Ferritin 6 ng/mL (8-252); Iron Binding Capacity,Total 675 ug/dL (250-450)
[2024-03-04 15:24] LABS: Absolute Lymphocyte Count 1.97 X10^3/uL (0.83-4.51); Absolute Neutrophil Count 7.6 X10^3/uL (2.0-7.7); Basophil# 0.02 X10^3/uL; Basophil% 0.2 % (0-1); Eosinophil# 0.12 X10^3/uL; Eosinophils% 1.2 % (0-5); Hematocrit 30.3 % (37-47); Hemoglobin 9.9 g/dL (12.0-15.0); Lymphocyte # 1.97 X10^3/ul (0.83-4.51); Lymphocyte % 18.9 % (19-41); Mean Corp Hgb Conc 32.7 g/dL (32-36); Mean Corpuscular Hgb 28.8 pg (27.0-32.0); Mean Corpuscular Volume 88.1 fL (81-99); Monocyte# 0.62 X10^3/uL; NRBC Flagged by Analyzer 0 % (0-5); Neutrophil # 7.63 X10^3/uL (2.7-7.7); Neutrophil % 73.1 % (47-70); Platelet Count 266 K/mm3 (150-450); RBC Distribution Width CV 12.2 % (11.6-14.6); RBC Distribution Width SD 39.3 fl (35.1-43.9); Red Blood Count 3.44 M/mm3 (4.2-5.4); White Blood Count 10.4 K/mm3 (4.4-11.0)
[2024-03-04 15:40] LABS: ALB/GLOB Ratio 0.7 RATIO (0.9-2.4); AST(SGOT) 16 U/L (15-37); Alanine Aminotransfer ALT/SGPT 14 U/L (13-56); Albumin, Serum 2.9 g/dL (3.2-5.0); Alkaline Phosphatase 98 U/L (45-117); Anion Gap 9 (5-15); BUN 12 mg/dL (7-18); BUN/Creat Ratio 16.1 RATIO (10-20); Calcium,Total 8.6 mg/dL (8.5-10.1); Chloride 107 mmol/L (98-107); Creatinine, Serum 0.75 mg/dL (0.55-1.02); EST Glomerular Filtration Rate 94 mL/min (>60); Est Glom Filt Rate - Afr Amer 113 mL/min (>60); Globulin 4.1 g/dL (2.2-4.2); Glucose 81 mg/dL (74-106); Potassium 3.7 mmol/L (3.5-5.1); Sodium Level 136 mmol/L (136-145)
[2024-03-04 18:40] LABS: Protein, Urine (Random) 63.2 mg/dL (<11.9); Protein:Creat Ratio 211 mg/g CRE (0-200)
[2024-03-06 05:07] LABS: Transferrin 505 mg/dL (192-364)
== END | disposition home or self-care (01) ==
PROVIDERS: Obstetrics & Gynecology; Referring Provider Advanced Practice Midwife; Visit Provider Advanced Practice Midwife
DX: O09.92 Supervision of high risk pregnancy, unspecified, second trimester (principal); Z3A.00 Weeks of gestation of pregnancy not specified; O12.10 Gestational proteinuria, unspecified trimester; O99.019 Anemia complicating pregnancy, unspecified trimester
CPT/HCPCS: 36415; 80053; 82570; 82728; 83550; 84156; 84466; 85025; 87081

== ENCOUNTER 2024-03-27 09:53 | Inpatient (IN) | payer BC, SELFPAY ==
[2024-03-27] VITALS (18 sets, daily range): BP systolic 107–127; BP diastolic 71–87; PULSE 60–117; RESP 14–18; TEMP 36.1–36.8; O2SAT 96–100; BMI 29.8
[2024-03-27] MEDS: Lactated Ringers 1,000 ML 999 ML IV ×2 (10:15→18:23)
[2024-03-27 10:42] LABS: Absolute Lymphocyte Count 2.33 X10^3/uL (0.83-4.51); Absolute Neutrophil Count 4.1 X10^3/uL (2.0-7.7); Basophil# 0.03 X10^3/uL; Basophil% 0.4 % (0-1); Eosinophil# 0.24 X10^3/uL; Eosinophils% 3.4 % (0-5); Hemoglobin 9.3 g/dL (12.0-15.0); Lymphocyte # 2.33 X10^3/ul (0.83-4.51); Lymphocyte % 32.9 % (19-41); Mean Corp Hgb Conc 32.1 g/dL (32-36); Mean Corpuscular Hgb 27.7 pg (27.0-32.0); Mean Corpuscular Volume 86.3 fL (81-99); Mean Platelet Vol. 10.5 fl (6.2-12.0); Monocyte# 0.39 X10^3/uL; Monocyte% 5.5 % (0-10); NRBC Flagged by Analyzer 0 % (0-5); Neutrophil # 4.05 X10^3/uL (2.7-7.7); Neutrophil % 57.1 % (47-70); Platelet Count 252 K/mm3 (150-450); RBC Distribution Width SD 40.2 fl (35.1-43.9); Red Blood Count 3.36 M/mm3 (4.2-5.4); White Blood Count 7.1 K/mm3 (4.4-11.0)
[2024-03-27] MEDS: Lactated Ringers 1,000 ML 150 ML IV ×2 (11:15→19:50)
[2024-03-27] MEDS: Sodium Citrate/Citric Acid 30 ML UDC PO (11:41)
[2024-03-27] MEDS: Acetaminophen 500 MG Tablet 1000 MG PO ×2 (11:41→23:39)
--- NOTE | 2024-03-27 11:43 | HP.PCM_ITS ---
History and Physical Date of Admission: 03/27/24 ital Signs 12/25/2412:41 03/18/2413:01 03/25/2414:39 Height 5 ft 2 in 5 ft 2 in 5 ft 2 in Weight: 164 lb BMI 29.9 BP 109/74 Blood Pressure Location Rt brachial Position Sitting Intake Visit Reasons: 39 WK OB *SM/JV Chief Complaint: Routine OB 38 wk 6 days Harp Repairer Required: No Accompanied by: Self Is patient in pain?: No Allergies No Known Allergies Allergy (Verified 03/25/24 14:42) Medications ?Medication ?Instructions ?Recorded ?Confirmed ?Type vits,calcium no.78-iron 1 tab PO DAILY 06/04/18 03/25/24 History fumarate-folic acid 29 mg-1 mg tablet (Prenatabs FA) docusate sodium 100 mg capsule 100 mg PO BID constipation 02/08/22 03/25/24 History ondansetron 4 mg disintegrating 4 mg PO Q8H PRN nausea and 03/04/24 03/25/24 Rx tablet vomiting #30 tabs hydroxyzine pamoate 50 mg capsule 50 mg PO QHS #30 caps 03/18/24 03/25/24 Rx calcium carbonate (Tums) 300 mg PO BID PRN 03/25/24 03/25/24 History famotidine 20 mg tablet 20 mg PO BID 03/25/24 03/25/24 History Last Menstrual Period: 06/27/23 Zika: Zika virus screening: Negative Nurse's Note: Diarrhea last few days. Lori Argueta' throughout 3rd trimester but increasing in frequency last few weeks. Moderate contractions 5 minutes apart about 5 days ago. Now lori argueta contractions appear irregular. 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 [employer] current occupational exposures/hazards: No pets and animals: No history of recent travel: No sexually active: Yes Smoking Status: Never smoker alcohol intake: current alcohol intake frequency: holidays/special occasions only details: Not while substance use type: does not use well-balanced diet: daily or most days caffeine: Yes Type: coffee Number of servings: 1 eating out: rarely or never during the past year weight has: remained stable what type of physical activity do you participate in: walking and running frequency: 3-4 times per week duration: 30-45 minutes/day alexander/pentecostal: [employer] seatbelt use: always do you feel safe at home: Yes additional social history: Salo Kramer History 4 Elective abortions Hx Para 3 Spontaneous abortions Hx # Term Pregnancies 2 Ectopic pregnancies Hx # Pregnancies 1 Multiple births # of living children 3 Past Pregnancies Del. Date Name GA/Weeks Outcome Route Bth Weight Gen Labor Lgth Anesthesia Del Locatn Provider FOB 06/05/18 Will 39 live - full term 7#2oz Male 35 HR epidural [facility] Melva Clements 07/23/20 Ashley 36 live - 5#12oz Female spinal [facility] Jorge Clements 02/08/22 Darshana 40 live - full term 7#8o z Female spinal [facility] Shawn Clements Delivery Date: 06/05/18 Last Updated by: Lou Mccollum failure to progress after 35 hr labor HPI 39 WK OB *SM/JV Details: NAEL TAMAYO is a 33 year old who presents for routine OB visit. OB Visit MICHEAL Calculator Estimated Delivery Date Method Current WG Current Estimate 04/02/24 LMP (Certain) 38w 6d Expected Delivery Route/Plan repeat c/s Specific Issue/Plans Covid status: [] Flu vaccine: [] Tdap vaccine: given Rhogam: NA LARC form signed: yes movement and labor precautions reviewed. Problem list reviewed and updated with the most current plan of care details and appropriate orders placed. Relevant counseling for the gestational age provided. Continue routine care and follow up unless otherwise noted in visit notes/problem list details Initial Weight: Not Recorded Date -?-?-?-?-?-?--?-?-?-?-?-?- EGA Weight BP Urine Prot -?-?-?-?-?-?-?-?-?-?-?-?- Glucose FHR FuHt Pres Dilation -?-?-?-?-?-?-?-?-?-?-?-?- Effaced St Visit Note 09/06/23-?-?-?-?-?-?-?-?-?-?-?-?- 10w 1d 148 lb 8 oz 110/73 -?-?-?-?-?-?-?-?-?-?-?-?- 168 -?-?-?-?-?-?-?-?-?-?-?-?- LC- CRL con with LMP. declines nipt. hbga1c for hx of gdm. hx of cs, plans repeat cs 10/06/23-?-?-?-?-?-?-?-?-?-?-?-?- 14w 3d 149 lb 92/64 -?-?-?-?-?-?-?-?-?-?-?-?- 150 -?-?-?-?-?-?-?-?-?-?-?-?- SM- viable IUP seen, fht present 11/03/23-?-?-?-?-?-?-?-?-?-?-?-?- 18w 3d 145 lb 113/74 -?-?-?-?-?-?-?-?-?-?-?-?- 150 -?-?-?-?-?-?-?-?-?-?-?-?- SM- no vb lof good fm no regular ctx 12/01/23-?-?-?-?-?-?-?-?-?-?-?-?- 22w 3d 147 lb 103/67 Negative -?-?-?-?-?-?-?-?-?-?-?-?- Negative 145 -?-?-?-?-?-?-?-?-?-?-?-?- kw- no vb/lof/ctx. good fm. Possible change in MICHEAL from M. NOB labs today. 12/26/23-?-?-?-?-?-?-?-?-?-?-?-?- 26w 0d 154 lb 6 oz 100/66 Negative -?-?-?-?-?-?-?-?-?-?-?-?- Negative 148 26 -?-?-?-?-?-?-?-?-?-?-?-?- MH-No VB, LOF. Good FM. Has growth US scheduled w/M. Larc. 01/12/24-?-?-?-?-?-?-?-?-?-?-?-?- 28w 3d 156 lb 99/67 Negative -?-?-?-?-?-?-?-?-?-?-?-?- Negative 140 28 -?-?-?-?-?-?-?-?-?-?-?-?- SM- reveiwed BS and cbc no vb lof good fm no regualr ctx scheudled cs 01/26/24-?-?-?-?-?-?-?-?-?-?-?-?- 30w 3d 158 lb 4 oz 96/62 Negative -?-?-?-?-?-?-?-?-?-?-?-?- Negative 150 30 -?-?-?-?-?-?-?-?-?-?-?-?- JV- pt is planning to do the 3 hr GCT with the FreshTest brand. has rpt c- section scheduled with SM. 02/06/24-?-?-?-?--?-?-?-?-?-?-?-?- 32w 0d 156 lb 4 oz 109/69 Negative -?-?-?-?-?-?-?-?-?-?-?-?- Negative 134 31 -?-?-?-?-?-?-?-?-?-?-?-?- JV- still needs 3 hr. pt can not tolerate PO iron. will try chlorophyll 02/23/24-?-?-?-?-?-?-?-?-?-?-?-?- 34w 3d 161 lb 102/65 Negative -?-?-?-?-?-?-?-?-?-?-?-?- Negative 130 33 -?-?-?-?-?-?-?-?-?-?-?-?- KW- no vb/lof/ctx. good fm. CBC ordered. weekly MFM BPPs-growth next week 03/04/24-?-?-?-?-?-?-?-?-?-?-?-?- 35w 6d 160 lb 109/71 1+ -?-?-?-?-?-?- ?-?-?-?-?-?- Negative 142 36 Cephalic 1-?-?-?-?-?-?-?-?-?- ?-?-?- 0 -4 JV- pt complains of itchi ng and some contractions. She has plus 1 protein in urine but had loose stool and vomiting last night. suspect dehydration. JV- pt complains of itching and some contractions. She has plus 1 protein in urine but had loose stool and vomiting last night. suspect dehydration. [facility], bile acids, pr:Cr. 03/11/24-?-?-?-?-?-?-?-?-?-?-?-?- 36w 6d 165 lb 110/74 Negative -?-?-?-?-?-?-?-?-?-?-?-?- Negative 140 37 Cephalic -?-?-?-?-?-?-?-?-?-?-?-?- SM- no vb lof good fm no regular ctx 03/18/24-?-?-?-?-?-?-?-?-?-?-?-?- 37w 6d 165 lb 2 oz 127/80 Negative -?-?-?-?-?-?-?-?-?-?-?-?- Negative 130 37.5 Cephalic -?-?-?-?-?-?-?-?-?-?-?-?- JV- bpp scheduled for today at 1:30. she continues to have all over body itching and benadryl not helping .will try vistaril. no hands/ feet itching. 03/25/24-?-?-?-?-?-?-?-?-?-?-?-?- 38w 6d 164 lb 109/74 Trace A -?-?-?-?-?-?-?-?-?-?-?-?- Negative 130 39 -?-?-?-?-?-?-?-?-?-?-?-?- SM- no vb lof good fm ACOG First Trimester First Trimester: Desire for , Alcohol, Tobacco Cessation, Illicit/Recreational Drug/Substance Use, Intimate Partner Violence, Barriers to care, Unstable Housing, Communication Barriers, Environmental/Work Hazards, Anticipated Course of Care, Toxoplasmosis Precations, Use of Any medications, Sexual activity, Exercise, Dental Care, Sauna/Hot tub use, Seat Belt use, Childbirth classes/Hospital facilities, , Travel, Indications for Ultrasound and Screening for Aneuploidy Second Trimester Second Trimester: Signs and Symptoms of Labor, Selecting a care provider, Reproductive Life Planning & Contreception, Care Planning and Intimate Partner Violence; Discussed Tobacco Cessation and Discussed Depression/Anxiety Third Trimester Third Trimester: Labor support person(s), Immediate Larc, Circumcision preference and Signs and Symptoms of Preeclampsia ROS Const Reports system reviewed and no additional complaints, except as documented Card Reports system reviewed and no additional complaints, except as documented Resp Reports system reviewed and no additional complaints, except as documented GI Reports system reviewed and no additional complaints, except as documented and R eports nausea Reports system reviewed and no additional complaints, except as documented Musc Reports system reviewed and no additional complaints, except as documented Exam Const General: cooperative, healthy appearing, comfortable and anxious HENMT Head: normal to inspection Nose: external nose normal Face and sinus: normal facial exam Neck Neck: normal visual inspection, full ROM and no lymphadenopathy Thyroid: thyroid normal Chest Chest palpation & inspection: normal inspection of the chest Resp Effort & Inspection: normal respiratory effort GI Inspection: normal to inspection Palpation: soft and other (gravid uterus) Other: infant vertex and appropriate size for gestational age Other: Cervical Exam: Extrem General: pedal edema Results POC Urinalysis 2 Dip (Clinic) Office Urine Glucose Negative Last Edit by Tonia Haddad on 03/25/24 14:5 1 Office Urine Protein Trace Last Edit by Tonia Haddad on 03/25/24 14:51 Coding Level of Care Code OB Routine Diagnoses Anemia affecting O99.019 Placental cyst affecting in second trimester O43.192 Trimester: second trimester Hx of section Z98.891 Supervision of high risk in second trimester O09.92 Trimester: second trimester 37 weeks gestation of Z3A.37 Weeks of gestation: 37 weeks Assessment and Plan Assessment and Plan (1) Anemia affecting : Status: Acute Comment: HGB not improving on chlorophyll- (9.9) iron studies ordered. (2) Placental cyst affecting : Status: Acute Qualifiers: Trimester: second trimester Qualified Code(s): O43.192 - Other malformation of placenta, second trimester Comment: f/u at 28 weeks with MFM. weekly BPP with cyst follow up (3) Hx of section: Status: Acute Comment: plan repeat at 39 weeks w/SM and BS. Scheduled for 03/27 @12 (4) Supervision of high-risk : Status: Acute Qualifiers: Trimester: second trimester Qualified Code(s): O09.92 - Supervision of high risk , unspecified, second trimester Comment: [id number], MICHEAL 04/02/24, surprise PC Ashley Grigsby Annie, Tyree (5) : Status: Acute Qualifiers: Weeks of gestation: 37 weeks Qualified Code(s): Z3A.37 - 37 weeks gestation of Comment: GBS neg, declined genetic & carrier ntd testing. anatomy reveiwed. Orders: Orders POC Urinalysis 2 Dip (Clinic) Today O09.92 - Supervision of high risk , unspecified, second trimester, Z3A.37 - 37 weeks gestation of plan RLTCS UPDATE- I have seen the patient and performed any clinically relevant updates to the history and physical exam. Jonna Livingston MD
--- NOTE | 2024-03-27 11:44 | OP.PCM_ITS ---
Assessment & Plan (1) : QUALIFIERS: Weeks of gestation: 37 weeks Qualified Code(s): Z3A.37 - 37 weeks gestation of COMMENT: GBS neg, declined genetic & carrier ntd testing. anatomy reveiwed. (2) Supervision of high-risk : QUALIFIERS: Trimester: second trimester Qualified Code(s): O09.92 - Supervision of high risk , unspecified, second trimester COMMENT: [id number], MICHEAL 04/02/24, surprise PC Seb, Darshana Ramirez, Tyree (3) Hx of section: COMMENT: plan repeat at 39 weeks w/SM and BS. Scheduled for 03/27 @12 (4) Placental cyst affecting : QUALIFIERS: Trimester: second trimester Qualified Code(s): O43.192 - Other malformation of placenta, second trimester COMMENT: f/u at 28 weeks with MFM. weekly BPP with cyst follow up (5) Anemia affecting : COMMENT: HGB not improving on chlorophyll- (9.9) iron studies ordered. Maternal Data Information MICHEAL Calculator Estimated Delivery Date Method Current WG Current Estimate 04/02/24 LMP (Certain) 39w 1d Final MICHEAL Source: LMP Details Operative Information Date of Procedure: 03/27/24 Pre-Operative Diagnosis: Previous Post-Operative Diagnosis: same Indications for : Repeat Elective (and bilateral salpingectomy) Indications Narrative: Surgeon: Jonna Livingston MD Classification: Scheduled Procedure Type: low transverse installation and service technician #1: Lane Pate Type of Anesthesia: Spinal Special Medications: none Antibiotic Given: Ancef 2 grams IV x1 Drain: Perez to straight drain Estimated Blood Loss: 800 Fluids Replaced: crystalloid Procedure Start Time: 12:38 Procedure Stop Time: 13:10 Findings Description of Procedure: Spinal anesthesia was placed without difficulty. Perez catheter was placed. The patient was placed in the dorsal supine position with leftward tilt. Patient was prepped and draped in the normal sterile fashion. Pfannenstiel skin incision was made with the scalpel and carried through to the underlying layer of fascia with the scalpel. Fascia was nicked in the midline and the incision extended laterally. The rectus bellies were dissected off superiorly and inferiorly with out complication both sharply and bluntly. some scar tissue encountered and taken down sharply, omental to anterior abdominal wall adhesions removed with the ligasure. The peritoneum was entered digitally. The incision was stretched and a low transverse uterine incision was made with the scalpel. The infant's head was delivered atraumatically followed by the anterior and posterior shoulders without complication the rest of the delivered. The cord was clamped and cut and the infant was handed off to awaiting nurse. The placenta was delivered spontaneously immediately following and was noted to be intact and have a three-vessel cord. The uterus was exteriorized cleared of all clots and debris, and the incision was closed in a single layer closure using #1 Monocryl. Patient had desired sterilization and was counseled preoperatively regarding irreversibility and permanency. Therefore bilateral fallopian tubes were elevated and transected across using a LigaSure device starting proximally to distally without complication the entire fallopian tubes were removed. The ovaries and fallopian tubes were noted to be within normal limits. The uterus was returned to the maternal abdomen and gutters were cleared of all clots and debris. The peritoneum was closed with 3-0 Monocryl in a running fashion. Gloves were changed prior to fascial closure. Fascia was closed with 0 PDS in a running fashion. Subcutaneous tissue was copiously irrigated and the skin was closed with 3-0 Monocryl in a subcuticular fashion. Mepilex dressing was applied without complication. Patient was taken to recovery in stable condition. Amniotic Membrane Rupture Type: Artificial Amniotic Fluid Description: Clear Placenta Disposition: [facility] Cord Vessel Description: 3 Vessels Delayed Cord Clamping: Yes Complications Risks of Surgery Discussed w/Patient: Bleeding, Infection, Need for Future C- Sections and Injury to surrounding structure(s) including bowel and bladder Vaginal Delivery Complication Complications: None Admit VTE Documentation VTE Present on Admission: No VTE Mechan Device Prophylaxis: SCD's Multi Select Codes Urinary/Genital Urinary/Genital CPT Codes: 60633 C/S+TL and 0[address]96 Delivery [facility]
[2024-03-27 11:49] LABS: Syphilis Antibodies Non-reactive
[2024-03-27] MEDS: Cefazolin 2 GM in 0.9% Normal Saline (100mL Bag) 100 ML IV (12:09)
[2024-03-27] MEDS: Oxytocin 15 Units/NS 250ml 15 UNITS/250 ML IV.SOLN 83 UNITS IV (13:52)
[2024-03-27] MEDS: Lactated Ringers 1,000 ML 100 ML IV (13:54)
--- NOTE | 2024-03-27 13:55 | FALS_PTH ---
PATIENT: NAEL TAMAYO LOC: WP U#:[id number] AGE/SX: 33/F ROOM: WP004 RE03/27/[address]: Dr. Jonna Livingston MD : 1990 BED: 1 DIS: 03/29/2024 SPEC #: [id number] RECD: 03/28/24 09:14 STATUS: KORY JEVON #: [id number] MIKEL: 03/27/24 13:[address]: Jonna Livingston DEPT: SURGICAL PATHOLOGY RECD BY: Roya Lee ENTERED: 03/28/24 09:17 SP TYPE: FALL TUBES OTHR DR: No Primary Care Phys Tissues: Fallopian tube Procedures: Surgery Specimen Level II HEADER OPERATION: Tubal ligation PRE-OP DIAGNOSIS: Repeat section TISSUE SUBMITTED: Fallopian tube- suture in right tube MICROSCOPIC DIAGNOSIS Bilateral fallopian tubes, salpingectomy: Bilateral fallopian tubes, no pathologic diagnosis. SJ: 03/29/2024 MICROSCOPIC DESCRIPTION Slides are reviewed. GROSS DESCRIPTION Received in fixative is one container labeled with the patient's name and designated bilateral fallopian tubes- suture in right tube. The specimen consists of bilateral fallopian tubes including fimbrial ends. Right fallopian measuring 6.5 cm in length and 1.0 cm in diameter. Left fallopian tube measures 6.5cm in length and 1.0cm in diameter. Sections reveal unremarkable cut surfaces. Systems Software Specialist sections are submitted in two cassettes. 1- right fallopian tube, 2- left fallopian tube / REENA: 03/28/2024 TC:4 CPT: 75361 x2
[2024-03-27 14:04] LABS: Pathology Specimen OB SEE PATHOLOGY REPORT
[2024-03-27] MEDS: Ketorolac 30 MG/ML Syringe IV (14:36)
--- NOTE | 2024-03-27 15:00 | NURSING ---
CLC in room to set up double pump. Pump supplies, setup and cleaning instructions explained. Pt states understanding. Encouraged pt to reach out if she has any questions.
--- NOTE | 2024-03-27 15:07 | NURSING ---
EMESIS OF 400CC. ORAL INTAKE APPROX 600CC CLEAR LIQUIDS.
[2024-03-27] MEDS: Ondansetron 4 MG/2 ML Vial IV (16:37)
--- NOTE | 2024-03-27 16:52 | DCINST_ITS ---
Discharge Instructions Diet Discharge Diet: No restrictions Activity Discharge Activity: May Not Drive (for 2 weeks or while taking narcotic pain medications.), May Shower and May Take a Tub Bath (in 7 days) May shower in (days): 0 May resume sexual activity in: 4-6 weeks Weight Bearing Status: Full weight bearing Lifting Restrictions: 20 pounds Dressing / Incision Call your doctor if your incision/area has: Continuous Slow Oozing, Sudden Increased Bleeding, Increased Pain/ Swelling, Increased Redness and Foul Smelling Discharge Call your doctor if you observe: Fever of 101 or Higher and Using more than 1 pad per hour (for 2 hours) Suture Line Care: Avoid Pulling/Pushing and Avoid Pinching/Bending Cleanse incision/area with: Soap & Water and Keep Dressing Clean & Dry Follow Up Care Please Follow Up With: Jonna Livingston MD When: Call [phone] to make an appointment for an incision check in 1-2 weeks. Test Results: Test results from this visit will be discussed in further detail at your follow- up appointment, if applicable. Discharge Plan Admission Admit Date/Time: 03/27/24 09:53 Attending Provider: Jonna Livingston Primary Care Provider: Care Physician,Selin Primary Discharge Orders/Prescriptions Prescriptions: New oxycodone-acetaminophen [Percocet] 5-325 mg tablet 1 tab PO Q6H PRN (Reason: pain) 7 Days Qty: 20 0RF naproxen 500 mg tablet 500 mg PO BID PRN PRN (Reason: Pain) Qty: 30 1RF No Action ondansetron 4 mg tablet,disintegrating 4 mg PO Q8H PRN (Reason: nausea and vomiting) Qty: 30 4RF famotidine 20 mg tablet 20 mg PO BID Tums 300 mg (750 mg) tablet,chewable 300 mg PO BID PRN (Reason: dyspepsia) Prenatabs FA 1 TABLET tablet 1 tab PO DAILY docusate sodium 100 MG capsule 100 mg PO BID Referrals / Follow Up: Care Physician,Selin Primary [Primary Care Provider] - Disposition Disposition (needs filled in before D/C Order can be placed): Home, Self Care
[2024-03-27] MEDS: proCHLORPERazine 10 MG/2 ML Vial IV (17:54)
[2024-03-27] MEDS: DiphenhydrAMINE 50 MG/ML Syringe 25 MG IV ×2 (18:23→18:47)
--- NOTE | 2024-03-27 18:29 | NURSING ---
1814 dr bergeron notified of urine output d/t pt vomiting many times since delivery and unable to tolerated any po intake; notified that after compazine was given pt became shakey and is unable to control her tremors- orders received for both
--- NOTE | 2024-03-27 18:39 | NURSING ---
pt tremors improving- heart rate returning to normal
--- NOTE | 2024-03-27 18:47 | NURSING ---
184 dr bergeron called to update- notified that tremors have much improved- pt still has some minor tremors- order received
[2024-03-28] MEDS: Lactated Ringers 1,000 ML 999 ML IV
[2024-03-28 00:29] VITALS: PULSE 67; RESP 14; O2SAT 97
[2024-03-28 03:25] VITALS: BP 116/80; PULSE 69; RESP 16; TEMP 36.7; O2SAT 98
[2024-03-28] MEDS: Ketorolac 30 MG/ML Syringe IV ×2 (03:31→09:31)
[2024-03-28] MEDS: Lactated Ringers 1,000 ML 150 ML IV (03:32)
[2024-03-28] MEDS: Acetaminophen 500 MG Tablet 1000 MG PO ×4 (05:26→23:32)
[2024-03-28 05:56] LABS: Hemoglobin 7.6 g/dL (12.0-15.0); Mean Corp Hgb Conc 31.7 g/dL (32-36); Mean Corpuscular Hgb 27.5 pg (27.0-32.0); Mean Platelet Vol. 10.2 fl (6.2-12.0); Platelet Count 205 K/mm3 (150-450); RBC Distribution Width CV 12.9 % (11.6-14.6); RBC Distribution Width SD 40.7 fl (35.1-43.9); Red Blood Count 2.76 M/mm3 (4.2-5.4); White Blood Count 7.7 K/mm3 (4.4-11.0)
--- NOTE | 2024-03-28 08:20 | PCM.PN.OB ---
Subjective Subjective Patient is laying in bed comfortably without complaints. She states that she slept on an off during the night. Lochia is mild and pain is minimal. Her baby was just transported to [facility] for breathing but she is still smiling and happy. She states that she cried when he left but she is doing well now. Objective Data Objective Data Vital Signs: Vital Signs Temp Pulse Resp BP Pulse Ox O2 Del Method 98.1 F 69 16 116/80 98 Room Air 03/28/24 03:25 03/28/24 03:25 03/28/24 03:25 03/28/24 03:25 03/28/24 03:25 03/28/24 03:25 Oxygen Delivery Method Room Air Weight: 163 lb 2.273 oz Body Mass Index (BMI) 29.8 Intake & Output: Intake and Output for Last 24 Hours 03/26/24 03/27/24 03/28/24 23:59 23:59 23:59 Intake Total 3507.38 / 4132.38 1989 Output Total 2353 / 2353 250 / 250 Balance 1154.38 / 1779.38 1740 / 1740 Lab / Micro Data 03/28/24 05:30 Labs: Laboratory Results - last 24 hr 03/27/24 10:15: WBC 7.1, RBC 3.36 L, Hgb 9.3 L, Hct 29.0 L, MCV 86.3, MCH 27.7, MCHC 32.1, RDW Std Deviation 40.2, RDW Coeff of Bright 13.0, Plt Count 252, MPV 10.5, Immature Gran % (Auto) 0.700, Neut % (Auto) 57.1, Lymph % (Auto) 32.9, [place] % (Auto) 5.5, Eos % (Auto) 3.4, Baso % (Auto) 0.4, Absolute Neuts (auto) 4.1, Absolute Lymphs (auto) 2.33, Nucleated RBC % 0, Syphilis Total Ab Non-reactive, Blood Type A POSITIVE, Antibody Screen NEGATIVE 03/28/24 05:30: WBC 7.7, RBC 2.76 L, Hgb 7.6 L, Hct 24.0 L, MCV 87.0, MCH 27.5, MCHC 31.7 L, RDW Std Deviation 40.7, RDW Coeff of Bright 12.9, Plt Count 205, MPV 10.2 ROS Constitutional Constitutional: Reports systems reviewed and no addt'l complaints, except as documented Cardiovascular Cardiovascular: Denies chest pain, dizziness, dyspnea or irregular heart rhythm Respiratory/Chest Respiratory/Chest: Denies cough, pain on inspiration or shortness of breath at rest Gastrointestinal Gastrointestinal: Denies abdominal pain, nausea or vomiting Genitourinary Genitourinary: Denies burning urination Musculoskeletal Musculoskeletal: Denies muscle cramps, muscle spasms or muscle weakness Neurologic Neurologic: Denies confusion, dizziness, headache(s) or lack of coordination Psychiatric Psychiatric: Denies anxiety, behavioral changes or depression Physical Exam HEENT normocephalic Resp normal respiratory effort and normal air movement GI soft to palpation, non-tender and non-distended Rectal Exam: other Other Details: Incision is clean, dry, and intact no CVA tenderness Extremity normal to inspection General Extremity: edema bilateral (trace )
[2024-03-28 09:29] VITALS: BP 103/68; PULSE 77; RESP 18; TEMP 36.6; O2SAT 98
[2024-03-28] MEDS: Senna/Docusate Sodium 1 Tablet PO (09:31)
[2024-03-28] MEDS: 0.9% Saline Lock 10 ML Syringe IV ×2 (09:31→18:28)
[2024-03-28 12:49] VITALS: BP 125/81; PULSE 87; RESP 18; TEMP 36.9; O2SAT 98
[2024-03-28] MEDS: Naproxen 500 MG Tablet PO ×2 (15:35→23:32)
[2024-03-28] MEDS: SimETHICONE 80 MG Chewable Tablet PO (15:38)
[2024-03-28] MEDS: Iron Sucrose Complex 200 MG in 0.9% Normal Saline (100mL Bag) 100 ML 220 MG IV (18:27)
[2024-03-28 19:51] VITALS: BP 117/79; PULSE 92; RESP 16; TEMP 36.7; O2SAT 98
[2024-03-29 02:05] VITALS: BP 125/75; PULSE 65; RESP 16; TEMP 36.9; O2SAT 98
[2024-03-29] MEDS: Acetaminophen 500 MG Tablet 1000 MG PO ×2 (06:10→11:59)
[2024-03-29 07:13] LABS: Absolute Lymphocyte Count 2.01 X10^3/uL (0.83-4.51); Absolute Neutrophil Count 5.7 X10^3/uL (2.0-7.7); Basophil# 0.02 X10^3/uL; Basophil% 0.2 % (0-1); Eosinophils% 5.7 % (0-5); Hematocrit 28.3 % (37-47); Hemoglobin 9.1 g/dL (12.0-15.0); Lymphocyte # 2.01 X10^3/ul (0.83-4.51); Lymphocyte % 22.9 % (19-41); Mean Corp Hgb Conc 32.2 g/dL (32-36); Mean Corpuscular Volume 87.1 fL (81-99); Mean Platelet Vol. 9.7 fl (6.2-12.0); Monocyte# 0.46 X10^3/uL; Monocyte% 5.3 % (0-10); NRBC Flagged by Analyzer 0 % (0-5); Neutrophil # 5.71 X10^3/uL (2.7-7.7); Neutrophil % 65.2 % (47-70); Platelet Count 238 K/mm3 (150-450); RBC Distribution Width CV 13.3 % (11.6-14.6); RBC Distribution Width SD 41.5 fl (35.1-43.9); Red Blood Count 3.25 M/mm3 (4.2-5.4); White Blood Count 8.8 K/mm3 (4.4-11.0)
[2024-03-29 08:11] VITALS: BP 126/81; PULSE 82; RESP 18; TEMP 36.7; O2SAT 99
[2024-03-29] MEDS: Senna/Docusate Sodium 1 Tablet PO (08:13)
[2024-03-29] MEDS: Naproxen 500 MG Tablet PO (08:14)
--- NOTE | 2024-03-29 09:00 | PN.OBGYN_ITS ---
Subjective Subjective Patient doing well without complaints. Tolerating PO. Ambulating and voiding without difficulty. infant feeding well. Denies chest pain, shortness of breath, calf pain/swelling, fevers, chills, lightheadedness. Objective Data Objective Data Vital Signs: Vital Signs Temp Pulse Resp BP Pulse Ox O2 Del Method 98.1 F 82 18 126/81 H 99 Room Air 03/29/24 08:11 03/29/24 08:11 03/29/24 08:11 03/29/24 08:11 03/29/24 08:11 03/29/24 08:27 Oxygen Delivery Method Room Air Weight: 163 lb 2.273 oz Body Mass Index (BMI) 29.8 Intake & Output: Intake and Output for Last 24 Hours 03/27/24 03/28/24 03/29/24 23:59 23:59 23:59 Intake Total 3507.38 / 4132.38 3100 / 3100 Output Total 2353 / 2353 250 / 250 Balance 1154.38 / 1779.38 2850 / 2850 Lab / Micro Data 03/29/24 07:03 Labs: Laboratory Results - last 24 hr 03/29/24 06:23: WBC Cancelled, Corrected WBC Cancelled, RBC Cancelled, Hgb Cancelled, Hct Cancelled, MCV Cancelled, MCH Cancelled, MCHC Cancelled, RDW Std Deviation Cancelled, RDW Coeff of Bright Cancelled, Plt Count Cancelled, MPV Cancelled, Immature Gran % (Auto) Cancelled, Neut % (Auto) Cancelled, Lymph % (Auto) Cancelled, [place] % (Auto) Cancelled, Eos % (Auto) Cancelled, Baso % (Auto) Cancelled, Absolute Neuts (auto) Cancelled, Absolute Lymphs (auto) Cancelled, Total Counted Cancelled, Neutrophils % (Manual) Cancelled, Band Neutrophils % Cancelled, Lymphocytes % (Manual) Cancelled, Monocytes % (Manual) Cancelled, Eosinophils % (Manual) Cancelled, Basophils % (Manual) Cancelled, Metamyelocytes % Cancelled, Myelocytes % Cancelled, Promyelocytes % Cancelled, Blast Cells % Cancelled, Plasma Cell % (Manual) Cancelled, Other Cells % Cancelled, Nucleated RBC % Cancelled, Nucleated RBCs/100 WBC Cancelled, Differential Comment Cancelled, Diff Path Review Cancelled, Hypersegmented Neuts Cancelled, Atypical Lymphocytes Cancelled, Reactive Lymphocytes Cancelled, Smudge Cells Cancelled, Toxic Granulation Cancelled, Toxic Vacuolation Cancelled, Dohle Bodies Cancelled, [place] Rods Cancelled, Platelet Estimate Cancelled, Plt Morphology Comment Cancelled, RBC Morphology Cancelled 03/29/24 06:23: RBC Morphology Cancelled, Polychromasia Cancelled, Hypochromasia Cancelled, Basophilic Stippling Cancelled, Anisocytosis Cancelled, Microcytosis Cancelled, Macrocytosis Cancelled, Spherocytes Cancelled, Sickle Cells Cancelled, Target Cells Cancelled, Tear Drop Cells Cancelled, Ovalocytes Cancelled, Stomatocytes Cancelled, [place] Bodies Cancelled, [place] Cells Cancelled, Bite Cells Cancelled, Crenated Cell Cancelled, Acanthocytes (Spur) Cancelled, Rouleaux Cancelled, Schistocytes Cancelled 03/29/24 07:03: WBC 8.8, RBC 3.25 L, Hgb 9.1 L, Hct 28.3 L, MCV 87.1, MCH 28.0, MCHC 32.2, RDW Std Deviation 41.5, RDW Coeff of Bright 13.3, Plt Count 238, MPV 9.7, Immature Gran % (Auto) 0.700, Neut % (Auto) 65.2, Lymph % (Auto) 22.9, [place] % (Auto) 5.3, Eos % (Auto) 5.7 H, Baso % (Auto) 0.2, Absolute Neuts (auto) 5.7, Absolute Lymphs (auto) 2.01, Nucleated RBC % 0 ROS Constitutional Constitutional: Reports systems reviewed and no addt'l complaints, except as documented Cardiovascular Cardiovascular: Reports systems reviewed and no addt'l complaints, except as documented Respiratory/Chest Respiratory/Chest: Reports systems reviewed and no addt'l complaints, except as documented Gastrointestinal Gastrointestinal: Reports systems reviewed and no addt'l complaints, except as documented Physical Exam Const alert, oriented x3 and no apparent distress HEENT Head and Scalp: atraumatic Resp normal respiratory effort GI soft to palpation and non-tender Inspection: incision intact, healing well and drainage (none) Bimanual Exam - Vag & Uterus: uterus non-tender Uterus Palpation: uterus fundus firm (below Umbilicus) Assessment & Plan (1) Status post bilateral salpingectomy: COMMENT: AKASH 03/27/24 (2) delivery delivered: COMMENT: AKASH RLTCS BS 39 boy PLAN: Plan s/p LTCS PPD # 2 1. routine post care 2. breast feeding- support given 3. rh positive 4. rubella immune
--- NOTE | 2024-03-29 09:19 | DS.PCM_ITS ---
Providers Date of Admission: 03/27/24 Primary Care Physician: Selin Primary Care Phys Reason For Visit: REPEAT C SECTION Diagnosis Discharge Diagnosis (1) Status post bilateral salpingectomy: Status: Acute Code(s): Z90.79 - Acquired absence of other genital organ(s) (2) delivery delivered: Status: Acute Code(s): O82 - Encounter for delivery without indication Plan s/p LTCS PPD # 2 1. routine post care 2. breast feeding- support given 3. rh positive 4. rubella immune Medications at Discharge Home Medications vits,calcium no.78-iron fumarate-folic acid 29 mg-1 mg tablet (Prenatabs FA) 1 tab PO DAILY 06/04/18 docusate sodium 100 mg capsule 100 mg PO BID constipation 02/08/22 ondansetron 4 mg disintegrating tablet 4 mg PO Q8H PRN nausea and vomiting #30 tabs 03/04/24 calcium carbonate (Tums) 300 mg PO BID PRN dyspepsia 03/25/24 famotidine 20 mg tablet 20 mg PO BID indigestion 03/25/24 naproxen 500 mg tablet 500 mg PO BID PRN PRN Pain #30 tabs 03/27/24 oxycodone-acetaminophen 5 mg-325 mg tablet (Percocet) 1 tab PO Q6H PRN pain 7 days #20 tabs 03/27/24 Hospital Course Summary of Care Provided Hospital Course: patient presented for RLTCS and had an uncomplicated delivery. Postoperatively patient had return of bowel and bladder function and was ambulating well, tolerating adequate p.o., and was stable for discharge to home on postop day #2. Discharge medications naproxen and Percocet. Follow-up in office in 2 weeks for incision check in 6 weeks for visit. Routine post section diet and activity instructions. Weight / BMI Weight Weight: 163 lb 2.273 oz Body Mass Index (BMI) 29.8 ABG / Lab / Microbiology Data 03/29/24 07:03 Laboratory: Laboratory Results - last 24 hr 03/29/24 06:23: WBC Cancelled, Corrected WBC Cancelled, RBC Cancelled, Hgb Cancelled, Hct Cancelled, MCV Cancelled, MCH Cancelled, MCHC Cancelled, RDW Std Deviation Cancelled, RDW Coeff of Bright Cancelled, Plt Count Cancelled, MPV Cancelled, Immature Gran % (Auto) Cancelled, Neut % (Auto) Cancelled, Lymph % (Auto) Cancelled, [place] % (Auto) Cancelled, Eos % (Auto) Cancelled, Baso % (Auto) Cancelled, Absolute Neuts (auto) Cancelled, Absolute Lymphs (auto) Cancelled, Total Counted Cancelled, Neutrophils % (Manual) Cancelled, Band Neutrophils % Cancelled, Lymphocytes % (Manual) Cancelled, Monocytes % (Manual) Cancelled, Eosinophils % (Manual) Cancelled, Basophils % (Manual) Cancelled, Metamyelocytes % Cancelled, Myelocytes % Cancelled, Promyelocytes % Cancelled, Blast Cells % Cancelled, Plasma Cell % (Manual) Cancelled, Other Cells % Cancelled, Nucleated RBC % Cancelled, Nucleated RBCs/100 WBC Cancelled, Differential Comment Cancelled, Diff Path Review Cancelled, Hypersegmented Neuts Cancelled, Atypical Lymphocytes Cancelled, Reactive Lymphocytes Cancelled, Smudge Cells Cancelled, Toxic Granulation Cancelled, Toxic Vacuolation Cancelled, Dohle Bodies Cancelled, Dominga Rods Cancelled, Platelet Estimate Cancelled, Plt Morphology Comment Cancelled, RBC Morphology Cancelled 03/29/24 06:23: RBC Morphology Cancelled, Polychromasia Cancelled, Hypochromasia Cancelled, Basophilic Stippling Cancelled, Anisocytosis Cancelled, Microcytosis Cancelled, Macrocytosis Cancelled, Spherocytes Cancelled, Sickle Cells Cancelled, Target Cells Cancelled, Tear Drop Cells Cancelled, Ovalocytes Cancelled, Stomatocytes Cancelled, [place] Bodies Cancelled, [place] Cells Cancelled, Bite Cells Cancelled, Crenated Cell Cancelled, Acanthocytes (Spur) Cancelled, Rouleaux Cancelled, Schistocytes Cancelled 03/29/24 07:03: WBC 8.8, RBC 3.25 L, Hgb 9.1 L, Hct 28.3 L, MCV 87.1, MCH 28.0, MCHC 32.2, RDW Std Deviation 41.5, RDW Coeff of Bright 13.3, Plt Count 238, MPV 9.7, Immature Gran % (Auto) 0.700, Neut % (Auto) 65.2, Lymph % (Auto) 22.9, [place] % (Auto) 5.3, Eos % (Auto) 5.7 H, Baso % (Auto) 0.2, Absolute Neuts (auto) 5.7, Absolute Lymphs (auto) 2.01, Nucleated RBC % 0 D/C Instructions Discharge Diet: No restrictions Discharge Activity: May Not Drive (for 2 weeks or while taking narcotic pain medications.), May Shower and May Take a Tub Bath (in 7 days) May shower in (days): 0 May resume sexual activity in: 4-6 weeks Weight Bearing Status: Full weight bearing Call your doctor if your incision/area has: Continuous Slow Oozing, Sudden Increased Bleeding, Increased Pain/ Swelling, Increased Redness and Foul Smelling Discharge Call your doctor if you observe: Fever of 101 or Higher and Using more than 1 pad per hour (for 2 hours) Suture Line Care: Avoid Pulling/Pushing and Avoid Pinching/Bending Cleanse incision/area with: Soap & Water and Keep Dressing Clean & Dry Please Follow Up With: Jonna Livingston MD When: Call [phone] to make an appointment for an incision check in 1-2 weeks. Meaningful Use Info Meaningful Use Meaningful Use Diagnoses (Choose all that apply): None applicable Ischemic Stroke Statin Dosing Therapy Reference: STATIN DOSE THERAPY REFERENCE: * Patients > 75 years receive moderate or high dose statin therapy. * Patients 75 years or YOUNGER should receive HIGH intensity statin dose unless contraindicated. You will be required to document reason for non-treatment if statin daily dose does not meet guidelines. HIGH DOSE STATIN THERAPY DAILY Atorvastatin > than or = to 40 mg Rosuvastatin > than or = to 20 mg Amlodipine + Atorvastatin > than or = to 2.5/40 mg Ezetimibe + Simvastatin 10/80 mg Simvastatin 80mg Discharge Plan Admission Admit Date/Time: 03/27/24 09:53 Attending Provider: Jonna Livingston Primary Care Provider: Care Physician,Selin Primary Discharge Orders/Prescriptions Prescriptions: New oxycodone-acetaminophen [Percocet] 5-325 mg tablet 1 tab PO Q6H PRN (Reason: pain) 7 Days Qty: 20 0RF naproxen 500 mg tablet 500 mg PO BID PRN PRN (Reason: Pain) Qty: 30 1RF No Action ondansetron 4 mg tablet,disintegrating 4 mg PO Q8H PRN (Reason: nausea and vomiting) Qty: 30 4RF famotidine 20 mg tablet 20 mg PO BID Tums 300 mg (750 mg) tablet,chewable 300 mg PO BID PRN (Reason: dyspepsia) Prenatabs FA 1 TABLET tablet 1 tab PO DAILY docusate sodium 100 MG capsule 100 mg PO BID Referrals / Follow Up: Care Physician,No Primary [Primary Care Provider] - Disposition Disposition (needs filled in before D/C Order can be placed): Home, Self Care
[2024-03-29 12:03] VITALS: BP 126/81; PULSE 82; RESP 18; TEMP 36.7; O2SAT 99
== END 2024-03-29 12:15 | disposition home or self-care (01) | DRG 785 ==
PROVIDERS: Admitting Provider Obstetrics & Gynecology; Visit Provider Obstetrics & Gynecology
PROC: 10D00Z1 Extraction of Products of Conception, Low, Open Approach (ICD-10-PCS; CPT 59514; principal; 2024-03-27 11:45)
DX: O34.211 Maternal care for low transverse scar from previous cesarean delivery (principal); Z30.2 Encounter for sterilization; Z37.0 Single live birth; Z3A.37 37 weeks gestation of pregnancy
CPT/HCPCS: 59025; 59050; 85025; 85027; 86780; 86850; 86900; 86901; 88302; 99221; J1756; J7120; A4216; G0378; J2405